=== PATIENT | female | born 1985 | race Caucasian/White ===

== ENCOUNTER → 2020-06-29 14:08 | Outpatient (BNVA) | payer MEDICAID, SELFPAY | PROVIDERS: PCP Internal Medicine; Referring Provider Internal Medicine; Visit Provider Physician Assistant | DX: R12 Heartburn (principal); Z79.899 Other long term (current) drug therapy | CPT/HCPCS: 99203 ==

== ENCOUNTER → 2020-08-24 08:53 | Outpatient (BNVA) | payer MEDICAID, SELFPAY | PROVIDERS: PCP Internal Medicine; Visit Provider Physician Assistant | DX: Z76.89 Persons encountering health services in other specified circumstances (principal) ==

== ENCOUNTER 2021-03-29 13:11 | Outpatient (REF) | payer MEDICAID, SELFPAY ==
[2021-03-29 14:35] LABS: MANUAL DIFF FLAG NO
[2021-03-29 14:46] LABS: Basophils Absolute Auto 0.1 X10*3/uL (0.0-0.2); Basophils Percent Auto 0.5 % (0-2); Eosinophils Absolute Auto 0.6 X10*3/uL (0.0-0.4); Eosinophils Percent Auto 4.3 % (0-4); Hemoglobin 10.1 g/dl (12.0-16.0); Imm Gran Abs Auto 0.05 X10*3/uL (0.00-0.03); Imm Gran Pct Auto 0.4 % (0.0-0.4); Lymphocytes Absolute Auto 2.7 X10*3/uL (1.2-4.9); Lymphocytes Percent Auto 20.5 % (20-40); Mean Corpuscular HGB Conc 29.7 g/dl (31.0-35.0); Monocytes Absolute Auto 0.6 X10*3/uL (0.1-1.2); Monocytes Percent Auto 4.5 % (2-11); NRBC Pct Auto 0.2 /100WBC (0.0-0.2); Neutrophils Absolute Auto 9.2 X10*3/uL (2.0-8.3); Neutrophils Percent Auto 69.8 % (45-73); Platelet Count 321 X10*3/uL (160-400); Red Blood Count 5.61 X10*6/uL (4.20-5.50); Red Cell Distribution Width 19.3 % (11.0-16.0); White Blood Count 13.2 X10*3/uL (4.8-10.8)
[2021-03-29 14:47] LABS: Mean Corpuscular Volume 60.6 fL (80-98)
[2021-03-29 14:57] LABS: Alanine Aminotransferase 13 U/L (0-31); Albumin Level 4.7 g/dL (3.5-5.0); Alkaline Phosphatase 94 U/L (39-117); Anion Gap 16 (12-20); Aspartate Amino Transferase 17 U/L (5-31); Bilirubin Total 1.2 mg/dL (0.0-1.0); Blood Urea Nitrogen 9 mg/dL (9-16); Calcium 9.7 mg/dL (8.4-10.2); Carbon Dioxide 24 mmol/L (22-29); Chloride 102 mmol/L (96-108); Estimated Glomerular Filt Rate > 60; Glucose Random 87 mg/dL (60-115); Iron 57 mcg/dL (30-160); Percent Iron Saturation 18 % (15-50); Potassium 4.6 mmol/L (3.3-5.1); Sodium 137 mmol/L (135-145); Total Iron Binding Capacity 310 mcg/dL (228-428); Total Protein 7.8 g/dL (6.5-8.0); Unsaturated Iron Binding 253 ug/dL
[2021-03-29 15:19] LABS: Ferritin 266 ng/mL (10-122); Thyroid Stimulating Hormone 0.89 uIU/mL (0.32-4.0)
[2021-03-29 15:29] LABS: Vitamin B12 652 pg/mL (200-900)
[2021-04-02 12:46] LABS: Transglutaminase IgA 1 U/mL
[2021-04-03 12:17] LABS: Endomysial IgA Antibody Negative (Negative)
== END 2021-03-29 13:12 | disposition home or self-care (01) ==
LOC: HO.LAB 13:11
PROVIDERS: PCP Internal Medicine; Referring Provider Internal Medicine; Visit Provider Physician Assistant
DX: R10.11 Right upper quadrant pain (principal); D64.9 Anemia, unspecified; R74.01 Elevation of levels of liver transaminase levels; R19.7 Diarrhea, unspecified; K59.09 Other constipation; R12 Heartburn
CPT/HCPCS: 36415; 80053; 82607; 82728; 82746; 83516; 83540; 84443; 85025; 86255; 86256; 99202

== ENCOUNTER → 2021-04-10 10:07 | Outpatient (BNVA) | payer MEDICAID, SELFPAY | PROVIDERS: PCP Internal Medicine; Visit Provider Physician Assistant ==

== ENCOUNTER 2021-04-24 15:03 | Outpatient (REF) | payer MEDICAID, SELFPAY ==
--- NOTE | ~2021-04-24 | US_ITS ---
EXAMINATION: PELVIC ULTRASOUND CLINICAL INFORMATION: Endometriosis COMPARISON: Previous pelvic MRI October [address] of the abdomen and pelvis December 2018 TECHNIQUE: Transabdominal and transvaginal pelvic ultrasound. Transvaginal exam was performed for better visualization of the uterus and ovaries. FINDINGS: The uterus is anteverted and measures 10.8 x 4.1 x 5.3 cm in dimension. No focal uterine lesion is seen. Endometrial thickness is normal measuring 1.4 cm. The right ovary measures 4.2 x 1.7 x 3.4 cm. There is a 1.6 x 1.5 x 1.3 cm slightly complex right ovarian cyst. The left ovary is normal-appearing and measures 3.7 x 1.7 x 2 cm. There is a small amount of fluid in the pelvis adjacent to the right ovary. US/US pelvic and transvaginal IMPRESSION: Small 1.6 x 1.5 x 1.3 cm slightly complex right ovarian cyst and small amount of fluid in the right pelvis.
== END 2021-04-24 15:04 | disposition home or self-care (01) ==
LOC: HO.HMGCX 15:03
PROVIDERS: Visit Provider Advanced Practice Midwife
DX: N80.9 Endometriosis, unspecified (principal); N94.6 Dysmenorrhea, unspecified
CPT/HCPCS: 76830; 76856

== ENCOUNTER 2021-07-19 07:58 | Outpatient (REF) | payer MEDICAID, SELFPAY ==
[2021-07-19 10:10] LABS: Hematocrit 33.9 % (37-47); Hemoglobin 10.2 g/dl (12.0-16.0); Mean Corpuscular HGB Conc 30.1 g/dl (31.0-35.0); Mean Corpuscular Hemoglobin 18.4 pg (27.0-33.0); NRBC Pct Auto 0.2 /100WBC (0.0-0.2); Platelet Count 306 X10*3/uL (160-400); Red Blood Count 5.55 X10*6/uL (4.20-5.50); Red Cell Distribution Width 18.6 % (11.0-16.0); White Blood Count 12.3 X10*3/uL (4.8-10.8)
[2021-07-19 10:13] LABS: Mean Corpuscular Volume 61.1 fL (80-98)
[2021-07-19 10:26] LABS: HCG Quantitative < 2 mIU/mL; TSH reflex Free T4 1.66 uIU/mL (0.32-4.0)
[2021-07-19 14:42] LABS: CT PCR NOT DETECTED (Not Detect.); NG PCR NOT DETECTED (Not Detect.)
[2021-07-20 22:21] LABS: CA-125 12 U/mL (<35)
[2021-07-24 05:46] LABS: HPV mRNA E6/E7 rflx Not Detected (Not Detected)
== END 2021-07-19 07:59 | disposition home or self-care (01) ==
LOC: HO.LAB 07:58
PROVIDERS: PCP Internal Medicine; Visit Provider Obstetrics & Gynecology
DX: Z12.4 Encounter for screening for malignant neoplasm of cervix (principal); Z11.51 Encounter for screening for human papillomavirus (HPV); Z11.3 Encounter for screening for infections with a predominantly sexual mode of transmission; R10.2 Pelvic and perineal pain; N92.0 Excessive and frequent menstruation with regular cycle; N83.299 Other ovarian cyst, unspecified side; R31.29 Other microscopic hematuria
CPT/HCPCS: 36415; 84443; 84702; 85027; 86304; 87086; 87491; 87591; 87624; 88142; 99212

== ENCOUNTER 2021-07-24 10:23 | Outpatient (REF) | payer MEDICAID, SELFPAY ==
--- NOTE | ~2021-07-24 | US_ITS ---
EXAMINATION: US PELVIS CLINICAL INFORMATION: Abnormal uterine bleeding. COMPARISON: 04/24/2021 TECHNIQUE: Ultrasound of the pelvis is performed using both transabdominal and transvaginal transducers along with Doppler. Transvaginal imaging is performed due to inadequate visualization transabdominally. FINDINGS: The uterus is measuring 13.5 x 4 x 5.8 cm. The endometrial thickness is measured at 1.1 cm. The uterus is anteverted and, therefore, better visualization of the canal on the transabdominal imaging. Note is made of some fluid in the lower uterine segment outlining the canal. The ovaries are also only defined transabdominally. The right ovary is measuring 3.2 x 1.9 x 2.5 cm. Volume 8 mL. The left ovary is measuring 2.9 x 2.1 x 2.7. Volume 9 mL. Ovarian appearance and vascularity within normal limits. No free fluid or obvious adnexal mass. US/US pelvic and transvaginal IMPRESSION: Endometrial thickness is 1.1 cm. This may be normal for mid to late phase of the cycle. Otherwise, hyperplasia or polyp formation cannot be excluded. There is some mild fluid in the lower uterine segment canal.
== END 2021-07-24 10:24 | disposition home or self-care (01) ==
LOC: HO.HMGCX 10:23
PROVIDERS: PCP Internal Medicine; Visit Provider Obstetrics & Gynecology
DX: N93.9 Abnormal uterine and vaginal bleeding, unspecified (principal)
CPT/HCPCS: 76830; 76856

== ENCOUNTER 2021-08-22 11:53 | Outpatient (REF) | payer MEDICAID, SELFPAY | END 2021-08-22 11:54 | disposition home or self-care (01) | LOC: HO.LAB 11:53 | PROVIDERS: PCP Internal Medicine; Visit Provider Obstetrics & Gynecology | DX: N92.0 Excessive and frequent menstruation with regular cycle (principal); R31.29 Other microscopic hematuria | CPT/HCPCS: 58100; 88305; 99212 ==

== ENCOUNTER → 2021-08-29 08:07 | Outpatient (BNVA) | payer MEDICAID, SELFPAY | PROVIDERS: PCP Internal Medicine; Referring Provider Emergency Medicine; Visit Provider Surgery | DX: K64.5 Perianal venous thrombosis (principal) | CPT/HCPCS: 99202 ==

== ENCOUNTER → 2021-09-20 09:12 | Outpatient (BNVA) | payer MEDICAID, SELFPAY | PROVIDERS: PCP Internal Medicine; Visit Provider Obstetrics & Gynecology | DX: N83.299 Other ovarian cyst, unspecified side (principal); N92.0 Excessive and frequent menstruation with regular cycle | CPT/HCPCS: 99212 ==

== ENCOUNTER → 2021-11-21 08:44 | Outpatient (BNVA) | payer MEDICAID, SELFPAY | PROVIDERS: PCP Internal Medicine; Referring Provider Internal Medicine; Visit Provider Physician Assistant | DX: N92.0 Excessive and frequent menstruation with regular cycle (principal); R12 Heartburn; D56.3 Thalassemia minor | CPT/HCPCS: 99212 ==

== ENCOUNTER → 2021-12-19 09:47 | Outpatient (BNVA) | payer MEDICAID, SELFPAY | PROVIDERS: Visit Provider Obstetrics & Gynecology | DX: N93.9 Abnormal uterine and vaginal bleeding, unspecified (principal) | CPT/HCPCS: 81025; 99212 ==

== ENCOUNTER 2022-02-07 17:05 | Emergency (ER) | payer MEDICAID, SELFPAY ==
--- NOTE | ~2022-02-07 | CT_ITS ---
EXAMINATION: CT ABDOMEN AND PELVIS WITHOUT CONTRAST CLINICAL INFORMATION: Left lower quadrant pain. History of constipation COMPARISON: 01/19/2019 CT scan TECHNIQUE: Multidetector volumetric imaging was performed from the superior aspect of the liver through the pubic symphysis. Sagittal and coronal reformatted images were obtained on the technologist's workstation. This CT examination was performed using dose optimization techniques as appropriate, variously including the following: *Automated exposure control *Adjustment of mA and/or kV according to patient size (this includes techniques or standardized protocols for targeted exams where dose is matched to indication/reason for exam; i.e. extremities or head) *Use of iterative reconstruction technique DLP: 743 mGy-cm FINDINGS: LUNG BASES: The visualized lung bases are unremarkable. LIVER, GALLBLADDER, AND BILIARY TREE: The liver is normal in size, shape, and attenuation. No focal hepatic lesion or biliary ductal dilatation is present. The gallbladder surgically absent. PANCREAS: Unremarkable. SPLEEN: Prominent measuring 13.2 cm in length, similar to the prior study. ADRENAL GLANDS: Unremarkable. KIDNEYS AND URETERS: The kidneys are normal in size, shape, and attenuation. No hydronephrosis or hydroureter. Nonobstructing 5 mm calcification in the lower pole right collecting system.. No perinephric stranding. BLADDER: Unremarkable. GASTROINTESTINAL TRACT: The small and large bowel are unremarkable. The appendix is unremarkable. ABDOMINAL WALL: No significant hernia is appreciated. LYMPH NODES: Normal. VASCULAR: Unremarkable. PELVIC VISCERA: Unremarkable. OSSEOUS STRUCTURES: Unremarkable. CT/CT abdomen pelvis wo con IMPRESSION: No acute intra-abdominal process seen. Nonobstructing right renal calculi incidentally noted. Fleischner guidelines were followed.
[2022-02-07 18:10] VITALS: BP 141/91; PULSE 89; RESP 16; TEMP 36.2; O2SAT 97; BMI 37.8
[2022-02-07 18:26] LABS: Appearance Urine CLEAR; Basophils Absolute Auto 0.1 X10*3/uL (0.0-0.2); Basophils Percent Auto 0.3 % (0-2); Color Urine YELLOW; Glucose Urine UA NEG (NEG); Leukocyte Esterase Urine NEG (NEG); NRBC Pct Auto 0.1 /100WBC (0.0-0.2); Neutrophils Absolute Auto 10.3 x10*3/uL (2.0-8.3); Nitrite Urine NEG (NEG); Red Blood Count 5.83 X10*6/uL (4.20-5.50); SCAN SMEAR FLAG 1; Specific Gravity - Urine <= 1.005 (1.005-1.025); Urine Blood NEG (NEG); Urine Ketones NEG (NEG); Urine Protein NEG (NEG-TRACE)
[2022-02-07 18:28] LABS: Eosinophils Absolute Auto 0.4 X10*3/uL (0.0-0.4); Hematocrit 34.7 % (37.0-47.0); Hemoglobin 10.5 g/dl (12.0-16.0); Imm Gran Abs Auto 0.06 X10*3/uL (0.00-0.03); Imm Gran Pct Auto 0.4 % (0.0-0.4); Lymphocytes Absolute Auto 3.3 X10*3/uL (1.2-4.9); Lymphocytes Percent Auto 22.3 % (20-40); MANUAL DIFF FLAG SCAN; Mean Corpuscular HGB Conc 30.3 g/dl (31.0-35.0); Monocytes Absolute Auto 0.7 X10*3/uL (0.1-1.2); Monocytes Percent Auto 4.6 % (2-11); Neutrophils Percent Auto 69.4 % (45-73); Platelet Count 342 X10*3/uL (160-400); White Blood Count 14.8 X10*3/uL (4.8-10.8)
[2022-02-07 18:29] LABS: UPreg QC Valid YES; Urine Pregnancy NEGATIVE (NEGATIVE)
[2022-02-07 18:36] LABS: Anion Gap 11 (12-20); Blood Urea Nitrogen 8 mg/dL (9-16); Calcium 9.3 mg/dL (8.4-10.2); Carbon Dioxide 25 mmol/L (22-29); Chloride 104 mmol/L (96-108); Creatinine Clr Calc Pharmacy 109.6; Estimated Glomerular Filt Rate > 60; Glucose Random 94 mg/dL (60-115); Sodium 136 mmol/L (135-145)
[2022-02-07 18:54] LABS: Mean Corpuscular Volume 59.5 fL (80.0-98.0)
[2022-02-07 18:55] LABS: PLT ABN DIST 1
[2022-02-07 18:57] LABS: SLIDE REVIEW VERIFIED
[2022-02-07 20:43] VITALS: BP 155/84; PULSE 81; RESP 18; TEMP 36.3; O2SAT 99
--- NOTE | 2022-02-07 21:04 | ED_ITS ---
HPI - Abdominal Pain General Chief Complaint: Abdominal Pain Stated Complaint: lower abd pain headache nausea Time Seen by Provider: 02/07/22 20:00 Source: patient Mode of arrival: ambulatory Limitations: no limitations History of Present Illness HPI narrative: Patient comes emergency room complaining of left lower quadrant pain for 2 days. Patient states that she has not moved her bowels in over 2 weeks. Patient takes some oral medication to move her bowels, she does not know the name. Patient denies blood in the stool, today she started complaining of nausea and worsening pain in the left lower quadrant Related Data Home Medications Medication Instructions Recorded Confirmed ferrous sulfate 220 mg (44 mg 110 mg PO DAILY 06/29/20 11/21/21 iron)/5 mL oral solution folic acid 800 mcg tablet 0.8 mg PO DAILY 06/29/20 11/21/21 sertraline 100 mg tablet 100 mg PO DAILY 06/29/20 11/21/21 hydrochlorothiazide 50 mg tablet 50 mg PO BID 04/10/21 11/21/21 Previous Rx's Medication Instructions Recorded omeprazole 20 mg capsule,delayed 20 mg PO DAILY #30 cap 08/24/20 release ferrous sulfate 325 mg (65 mg 325 mg PO DAILY #90 tab 07/19/21 iron) tablet,delayed release L norgest/E estradiol-E estrad 1 tab PO DAILY 84 Days #84 ea 12/19/21 0.15 mg-30 mcg (84)/10 mcg(7) tabs,3mos (Seasonique) polyethylene glycol 3350 17 gram 17 g PO BID #30 ea 02/07/22 oral powder packet (Miralax) Allergies Allergy/AdvReac Type Severity Reaction Status Date / Time latex Allergy Eye Verified 12/19/21 09:52 Swelling Review of Systems Review of Systems Constitutional : No Weight loss, No Fever, No Chills, No Night Sweats, No Fatigue, No Malaise ENT/Mouth : No Hearing loss, No Ear Pain, No Nasal Congestion, No Sinus Pain, No Hoarseness, No sore throat, No Rhinorrhea, No Swallowing Difficulty Eyes: No Eye Pain, No Swelling, No Redness, No Foreign Body, No Discharge, No Vision Changes Cardiovascular : No Chest Pain, No SOB, No Dyspnea on Exertion, No Orthopnea, No Edema, No Palpitations Respiratory : No Cough, No Sputum, No Wheezing, No Smoke Exposure, No Dyspnea Gastrointestinal : Complaining of nausea, no diarrhea, complaining of constipation and left lower quadrant pain Genitourinary : no irregular bleeding, No Dysuria, No Urinary Frequency, No Hematuria, No Urinary Incontinence, No Urgency, No Flank Pain, No Urinary Flow Changes, No Hesitancy Musculoskeletal : No joint pain, No Myalgias, No Joint Swelling Skin : No Skin Lesions, No rash Neuro : No Weakness, No Numbness, No Paresthesias, No Loss of Consciousness, No Dizziness, No Headache Psych : No Anxiety/Panic, No Depression, No SI/HI/AH/VH, No Social Issues, Heme/Lymph: No Bruising, No Bleeding,No Lymphadenopathy Endocrine : No Polyuria, No Polydipsia, No Temperature Intolerance [facility] Past Medical History Medical History Anemia Endometriosis Heartburn Thalassemia minor Thrombosed external hemorrhoid Surgical History No significant past surgical history Family History Family History Father Hypertension Heart attack Mother Cancer H/O thalassemia minor Social History Social History Household Members: Spouse and Children Housing: Apartment Alcohol intake: never Patient Tobacco Use Status: Never used Tobacco Advance Directives: No Current occupation: diesel bus mechanic Sexual orientation: Straight/Heterosexual Gender identity: Female Physical Exam ED Vital Signs: Vital Signs - 24 hr 02/07/22 18:10 02/07/22 20:43 02/07/22 22:11 Temperature 97.1 F 97.4 F 97.0 F Pulse Rate 89 81 79 Respiratory Rate 16 18 18 Blood Pressure 141/91 H 155/84 H 136/77 Pulse Oximetry 97 99 99 BMI result Body Mass Index 37.8 Const Other: Appearance: Alert. Oriented X3. No acute distress. Eyes: Pupils equal, round and reactive to light. ENT: Pharynx normal. Neck: Normal inspection. Neck supple. No lymph nodes noted. No crepitus CVS: Normal heart rate and rhythm. Pulses normal. Normal S1 and S2 Respiratory: No respiratory distress. Breath sounds normal. No Wheezing. No rales Abdomen: Soft pain to palpation over the left lower quadrant Skin: Skin warm and dry. Normal skin color. Normal skin turgor. Extremities: No lower extremity edema. No Lacerations. No Rash Neuro: Oriented X 3. No motor deficit. No sensory deficit. Moving all extremities. No slurred speech. CN 2 through 12 grossly intact Psych: calm, cooperative, normal affect Course Course Course Narrative: Patient's white blood cell count is 14.8, patient has history of chronic leukocytosis. Patient has no fever chills, normal blood pressure. CT scan pending. Patient was given 1 dose of IM Toradol and sublingual Zofran Patient's CT scan is unremarkable. Patient's abdominal pain likely secondary to constipation. The likely cause of constipation is p.o. iron intake MDM - Abdominal Pain Lab Data Result diagrams: 02/07/22 18:18 02/07/22 18:18 Labs: Lab Results 02/07/22 02/07/22 02/07/22 Range/Units 18:18 18:18 18:18 WBC 14.8 H (4.8-10.8) X10*3/uL RBC 5.83 H (4.20-5.50) X10*6/uL Hgb 10.5 L (12.0-16.0) g/dl Hct 34.7 L (37.0-47.0) % MCV 59.5 L (80.0-98.0) fL MCH 18.0 L (27.0-33.0) pg MCHC 30.3 L (31.0-35.0) g/dl RDW 19.0 H (11.0-16.0) % Plt Count 342 (160-400) X10*3/uL MPV Not Reportable Immature Gran % (Auto) 0.4 (0.0-0.4) % Neut % (Auto) 69.4 (45-73) % Lymph % (Auto) 22.3 (20-40) % Mcclain % (Auto) 4.6 (2-11) % Eos % (Auto) 3.0 (0-4) % Baso % (Auto) 0.3 (0-2) % Lymph # (Auto) 3.3 (1.2-4.9) X10*3/uL Mcclain # (Auto) 0.7 (0.1-1.2) X10*3/uL Eos # (Auto) 0.4 (0.0-0.4) X10*3/uL Baso # (Auto) 0.1 (0.0-0.2) X10*3/uL Abs Immat Gran (auto) 0.06 H (0.00-0.03) X10*3/uL Absolute Neuts (auto) 10.3 H (2.0-8.3) x10*3/uL Absolute Nucleated RBC 0.020 H (0.0-0.012) X10*3/uL Nucleated RBC % (auto) 0.1 (0.0-0.2) /100WBC Smear Tech's Comments VERIFIED Sodium 136 (135-145) mmol/L Potassium 4.0 (3.3-5.1) mmol/L Chloride 104 (96-108) mmol/L Carbon Dioxide 25 (22-29) mmol/L Anion Gap 11 L (12-20) BUN 8 L (9-16) mg/dL Creatinine 0.75 (0.5-1.4) mg/dL Estim Creat Clear Calc 109.6 Estimated GFR > 60 Random Glucose 94 (60-115) mg/dL Calcium 9.3 (8.4-10.2) mg/dL Total Bilirubin 0.9 (0.0-1.0) mg/dL Direct Bilirubin 0.3 (0.0-0.5) mg/dL AST 19 (5-31) U/L ALT 29 (0-31) U/L Alkaline Phosphatase 81 (39-117) U/L Total Protein 7.6 (6.5-8.0) g/dL Albumin 4.5 (3.5-5.0) g/dL Urine Color YELLOW Urine Appearance CLEAR Urine pH 6.0 (5.0-8.0) Ur Specific [place] <= 1.005 (1.005-1.025) Urine Protein NEG (NEG-TRACE) MG/DL Urine Glucose (UA) NEG (NEG) MG/DL Urine Ketones NEG (NEG) MG/DL Urine Blood NEG (NEG) Urine Nitrite NEG (NEG) Ur Leukocyte Esterase NEG (NEG) Urine Test (NEGATIVE) 02/07/22 Range/Units 18:18 WBC (4.8-10.8) X10*3/uL RBC (4.20-5.50) X10*6/uL Hgb (12.0-16.0) g/dl Hct (37.0-47.0) % MCV (80.0-98.0) fL MCH (27.0-33.0) pg MCHC (31.0-35.0) g/dl RDW (11.0-16.0) % Plt Count (160-400) X10*3/uL MPV Immature Gran % (Auto) (0.0-0.4) % Neut % (Auto) (45-73) % Lymph % (Auto) (20-40) % Mcclain % (Auto) (2-11) % Eos % (Auto) (0-4) % Baso % (Auto) (0-2) % Lymph # (Auto) (1.2-4.9) X10*3/uL [place]cl[place] # (Auto) (0.1-1.2) X10*3/uL Eos # (Auto) (0.0-0.4) X10*3/uL Baso # (Auto) (0.0-0.2) X10*3/uL Abs Immat Gran (auto) (0.00-0.03) X10*3/uL Absolute Neuts (auto) (2.0-8.3) x10*3/uL Absolute Nucleated RBC (0.0-0.012) X10*3/uL Nucleated RBC % (auto) (0.0-0.2) /100WBC Smear Tech's Comments Sodium (135-145) mmol/L Potassium (3.3-5.1) mmol/L Chloride (96-108) mmol/L Carbon Dioxide (22-29) mmol/L Anion Gap (12-20) BUN (9-16) mg/dL Creatinine (0.5-1.4) mg/dL Estim Creat Clear Calc Estimated GFR Random Glucose (60-115) mg/dL Calcium (8.4-10.2) mg/dL Total Bilirubin (0.0-1.0) mg/dL Direct Bilirubin (0.0-0.5) mg/dL AST (5-31) U/L ALT (0-31) U/L Alkaline Phosphatase (39-117) U/L Total Protein (6.5-8.0) g/dL Albumin (3.5-5.0) g/dL Urine Color Urine Appearance Urine pH (5.0-8.0) Ur Specific [place] (1.005-1.025) Urine Protein (NEG-TRACE) MG/DL Urine Glucose (UA) (NEG) MG/DL Urine Ketones (NEG) MG/DL Urine Blood (NEG) Urine Nitrite (NEG) Ur Leukocyte Esterase (NEG) Urine Test NEGATIVE (NEGATIVE) Imaging Data CT scan - abdomen: Radiologist's impression: FINDINGS: LUNG BASES: The visualized lung bases are unremarkable.? LIVER, GALLBLADDER, AND BILIARY TREE: The liver is normal in size, shape, and attenuation. No focal hepatic lesion or biliary ductal dilatation is present. The gallbladder surgically absent.? PANCREAS: Unremarkable.? SPLEEN: Prominent measuring 13.2 cm in length, similar to the prior study.? ADRENAL GLANDS: Unremarkable.? KIDNEYS AND URETERS: The kidneys are normal in size, shape, and attenuation. No hydronephrosis or hydroureter. Nonobstructing 5 mm calcification in the lower pole right collecting system.. No perinephric stranding. ? BLADDER: Unremarkable.? GASTROINTESTINAL TRACT: The small and large bowel are unremarkable. The appendix is unremarkable.? ABDOMINAL WALL: No significant hernia is appreciated.? LYMPH NODES: Normal. VASCULAR: Unremarkable. PELVIC VISCERA: Unremarkable.? OSSEOUS STRUCTURES: Unremarkable.? CT/CT abdomen pelvis wo con IMPRESSION: No acute intra-abdominal process seen. Nonobstructing right renal calculi incidentally noted.? ? Fleischner guidelines were followed. Discharge Plan Discharge Clinical Impression: Abdominal pain, Constipation Patient Disposition: Home, Self-Care Instructions: Constipation (ED) Additional Instructions: Please follow-up with your primary care physician tomorrow. If you have any worsening or new symptoms, please return to the emergency room or call 911 Prescriptions: New polyethylene glycol 3350 [Miralax] 17 gram powder in packet 17 g PO BID Qty: 30 0RF No Action ferrous sulfate 325 mg (65 mg iron) tablet,delayed release (DR/EC) 325 mg PO DAILY Qty: 90 1RF omeprazole 20 mg capsule,delayed release(DR/EC) 20 mg PO DAILY Qty: 30 5RF hydrochlorothiazide 50 mg tablet 50 mg PO BID 0RF sertraline 100 mg tablet 100 mg PO DAILY 0RF folic acid 800 mcg tablet 0.8 mg PO DAILY 0RF ferrous sulfate 220 mg (44 mg iron)/5 mL solution 110 mg PO DAILY 0RF L norgest/e.estradiol-e.estrad [Seasonique] 0.15 mg-30 mcg (84)/10 mcg (7) tablets,dose pack,3 month 1 tab PO DAILY 84 Days Qty: 84 1RF
[2022-02-07] MEDS: Ondansetron ODT 4 MG TAB.RAPDIS TRANSLINGU (21:11)
[2022-02-07] MEDS: Ketorolac Tromethamine 60 MG/2 ML VIAL IM (21:12)
[2022-02-07 21:14] LABS: Alanine Aminotransferase 29 U/L (0-31); Albumin Level 4.5 g/dL (3.5-5.0); Alkaline Phosphatase 81 U/L (39-117); Aspartate Amino Transferase 19 U/L (5-31); Bilirubin Direct 0.3 mg/dL (0.0-0.5); Bilirubin Total 0.9 mg/dL (0.0-1.0); Total Protein 7.6 g/dL (6.5-8.0)
[2022-02-07 22:11] VITALS: BP 136/77; PULSE 79; RESP 18; TEMP 36.1; O2SAT 99
== END 2022-02-07 22:35 | disposition home or self-care (01) ==
PROVIDERS: Emergency Provider Emergency Medicine; PCP Internal Medicine
DX: K59.00 Constipation, unspecified (principal); R10.32 Left lower quadrant pain; Z79.899 Other long term (current) drug therapy
CPT/HCPCS: 36415; 74176; 80048; 80076; 81003; 81025; 85025; 96372; 99283; 99284; J1885

== ENCOUNTER 2022-02-21 15:29 | Outpatient (REF) | payer MEDICAID, SELFPAY ==
[2022-02-22 02:31] LABS: CT PCR NOT DETECTED (Not Detect.); NG PCR NOT DETECTED (Not Detect.)
== END 2022-02-21 15:30 | disposition home or self-care (01) ==
LOC: HO.LAB 15:29
PROVIDERS: PCP Internal Medicine; Visit Provider Obstetrics & Gynecology
DX: N93.9 Abnormal uterine and vaginal bleeding, unspecified (principal); R31.29 Other microscopic hematuria; R10.2 Pelvic and perineal pain; R10.32 Left lower quadrant pain
CPT/HCPCS: 87086; 87491; 87591; 99212

== ENCOUNTER 2022-03-14 10:14 | Outpatient (REF) | payer MEDICAID, SELFPAY ==
--- NOTE | ~2022-03-14 | US_ITS ---
EXAMINATION: US PELVIS CLINICAL INFORMATION: AUB. Pelvic pain. History of endometriosis. COMPARISON: Ultrasound of pelvis 07/24/2021. Negative CT of the abdomen and pelvis 02/07/2022. TECHNIQUE: Ultrasound of the pelvis is performed using both transabdominal and transvaginal transducers along with Doppler. Transvaginal imaging is performed due to inadequate visualization transabdominally. FINDINGS: UTERUS: The uterus is anteverted, retroflexed and measures 12.1 cm in length, 4.1 cm in AP and 4.9 cm in transverse dimension. The double wall endometrial thickness is 0.46 cm. The uterus is smooth in contour and has normal myometrial echogenicity. No visible fibroid. ADNEXA: Both ovaries are visualized. There is normal color flow to the adnexa. There is no ovarian torsion. There is no pelvic ascites or fluid collection. Right ovary measures 3.1 x 1.5 x 2.5 cm and volume 6.0 mL. The ovary appears unremarkable. Previously it measured 3.2 x 1.9 x 2.5 cm and volume 8.0 mL. Left ovary measures 2.6 x 1.3 x 1.6 cm and volume 2.8 mL. The ovary appears unremarkable. Previously it measured 2.9 x 2.1 x 2.7 cm and volume 8.7 mL. There is no free fluid in the cul-de-sac. US/US pelvic and transvaginal IMPRESSION: Anteverted uterus appears unremarkable. The ovaries are unremarkable. There is no free fluid in the cul-de-sac.
== END 2022-03-14 10:15 | disposition home or self-care (01) ==
LOC: HO.HMGCX 10:14
PROVIDERS: Visit Provider Obstetrics & Gynecology
DX: R10.2 Pelvic and perineal pain (principal)
CPT/HCPCS: 76830; 76856

== ENCOUNTER → 2022-04-03 10:30 | Outpatient (BNVA) | payer MEDICAID, SELFPAY | PROVIDERS: PCP Internal Medicine; Visit Provider Obstetrics & Gynecology | DX: R10.2 Pelvic and perineal pain (principal) | CPT/HCPCS: 99212 ==

== ENCOUNTER → 2022-04-11 08:53 | Outpatient (BNVA) | payer MEDICAID, SELFPAY | PROVIDERS: PCP Internal Medicine | DX: R31.29 Other microscopic hematuria (principal); N20.0 Calculus of kidney | CPT/HCPCS: 99202 ==

== ENCOUNTER 2022-06-03 11:16 | Outpatient (REF) | payer MEDICAID, SELFPAY ==
--- NOTE | ~2022-06-03 | US_ITS ---
EXAMINATION: US RETROPERITONEAL LIMITED (RENAL ONLY) CLINICAL INFORMATION: Calculus of kidney. COMPARISON: CT abdomen and pelvis without contrast 02/07/2022. TECHNIQUE: Real-time imaging of the kidneys. FINDINGS: RIGHT KIDNEY: 11.4 x 4.6 x 6.0 cm (SAG x AP x TRV). The kidney is normal in size, contour, and echogenicity. Renal cortical thickness is normal. No focal parenchymal lesions or hydronephrosis. Two nonobstructive echogenic calculi. A midpole stone measures 0.32 x 0.12 x 0.23 cm and a lower pole stone measures 0.31 x 0.25 and 0.26 cm. LEFT KIDNEY: 11.7 x 4.4 x 5.3 cm (SAG x AP x TRV). The kidney is normal in size, contour, and echogenicity. Renal cortical thickness is normal. No calculi or focal parenchymal lesions. No hydronephrosis. US/US renal BI IMPRESSION: Two nonobstructive echogenic renal calculi right kidney. No caliectasis or hydronephrosis seen.
== END 2022-06-03 11:17 | disposition home or self-care (01) ==
LOC: HO.HMGCX 11:16
PROVIDERS: PCP Internal Medicine
DX: N20.0 Calculus of kidney (principal)
CPT/HCPCS: 76775

== ENCOUNTER → 2022-07-31 13:41 | Outpatient (BNVA) | payer MEDICAID, SELFPAY | PROVIDERS: PCP Internal Medicine; Visit Provider Urology | DX: Z13.9 Encounter for screening, unspecified (principal); N20.0 Calculus of kidney | CPT/HCPCS: 99212 ==

== ENCOUNTER 2022-08-12 11:09 | Emergency (ER) | payer MEDICAID, SELFPAY ==
[2022-08-12 11:13] VITALS: BP 120/86; PULSE 96; RESP 18; TEMP 36.6; O2SAT 98; BMI 39.4
--- NOTE | 2022-08-12 11:16 | ED_ITS ---
HPI - URI/Sore Throat General Chief Complaint: Upper Respiratory Symptoms Stated Complaint: cough congestion Time Seen by Provider: 08/12/22 11:31 Related Data Home Medications Medication Instructions Recorded Confirmed folic acid 800 mcg tablet 0.8 mg PO DAILY 06/29/20 07/31/22 sertraline 100 mg tablet 100 mg PO DAILY 06/29/20 07/31/22 hydroxyzine HCl 25 mg tablet 25 mg PO BID PRN 02/21/22 07/31/22 Previous Rx's Medication Instructions Recorded omeprazole 20 mg capsule,delayed 20 mg PO DAILY #30 caps 08/24/20 release ferrous sulfate 325 mg (65 mg 325 mg PO DAILY #90 tabs 07/19/21 iron) tablet,delayed release polyethylene glycol 3350 17 gram 17 g PO BID #30 ea 02/07/22 oral powder packet (Miralax) Allergies Allergy/AdvReac Type Severity Reaction Status Date / Time latex Allergy Eye Verified 08/12/22 10:39 Swelling PMFSH Past Medical History Medical History Anemia Endometriosis Heartburn Renal calculi Thalassemia minor Thrombosed external hemorrhoid Surgical History History of No significant past surgical history Family History Family History Father Hypertension Heart attack Mother Cancer H/O thalassemia minor Social History Social History Household Members: Spouse and Children Housing: Apartment Alcohol intake: never Patient Tobacco Use Status: Never used Tobacco Current occupation: business operations coordinator Sexual orientation: Straight/Heterosexual Gender identity: Female Physical Exam Vital Signs: Vital Signs: Last Vital Signs Temp 98 F 08/12/22 11:13 Pulse 96 08/12/22 11:13 Resp 18 08/12/22 11:13 BP 120/86 08/12/22 11:13 Pulse Ox 98 08/12/22 11:13 O2 Del Method 08/12/22 11:13 BMI result Body Mass Index 39.4 Discharge Plan Discharge Prescriptions: No Action ferrous sulfate 325 mg (65 mg iron) tablet,delayed release (DR/EC) 325 mg PO DAILY Qty: 90 1RF polyethylene glycol 3350 [Miralax] 17 gram powder in packet 17 g PO BID Qty: 30 0RF omeprazole 20 mg capsule,delayed release(DR/EC) 20 mg PO DAILY Qty: 30 5RF sertraline 100 mg tablet 100 mg PO DAILY folic acid 800 mcg tablet 0.8 mg PO DAILY hydroxyzine HCl 25 mg tablet 25 mg PO BID PRN
--- NOTE | 2022-08-12 11:32 | ED.GENADULT ---
HPI - General Adult General Chief complaint: Upper Respiratory Symptoms Stated complaint: cough congestion Time Seen by Provider: 08/12/22 11:31 Source: patient Mode of arrival: ambulatory Limitations: no limitations History of Present Illness HPI narrative: Patient is a 37 year old assigned female at with a history of asthma presenting to the emergency department today with a cough and feeling generally unwell. Patient states that for the last 2 days she has had a cough and felt generally unwell. Patient denies any dizziness, lightheadedness, abdominal pain, nausea, vomiting, fever, chills, blurry vision, double vision, loss of vision, chest pain, difficulty breathing, shortness of breath, back pain, night sweats, pain with urination, increased urinary frequency, increased urinary urgency, blood in her urine or stool, syncope or a near syncopal episode, recent trauma or falls, bowel incontinence, bladder incontinence, bowel retention, bladder retention, or any other complaints at this time. Onset (ago): day(s) (2) Severity: mild Severity scale (1-10): 2 Relieving factors: none Exacerbating factors: none Associated symptoms: cough Treatments prior to arrival: none Related Data Home Medications Medication Instructions Recorded Confirmed folic acid 800 mcg tablet 0.8 mg PO DAILY 06/29/20 07/31/22 sertraline 100 mg tablet 100 mg PO DAILY 06/29/20 07/31/22 hydroxyzine HCl 25 mg tablet 25 mg PO BID PRN 02/21/22 07/31/22 Previous Rx's Medication Instructions Recorded omeprazole 20 mg capsule,delayed 20 mg PO DAILY #30 caps 08/24/20 release ferrous sulfate 325 mg (65 mg 325 mg PO DAILY #90 tabs 07/19/21 iron) tablet,delayed release polyethylene glycol 3350 17 gram 17 g PO BID #30 ea 02/07/22 oral powder packet (Miralax) Allergies Allergy/AdvReac Type Severity Reaction Status Date / Time latex Allergy Eye Verified 08/12/22 10:39 Swelling Review of Systems Constitutional: Constitutional: Reports no additional constitutional complaints, Denies chills, Denies fever(s) and Denies night sweats Eyes: Eyes: Reports no additional eye complaints, Denies blurry vision, Denies change in vision, Denies diplopia, Denies eye discharge, Denies loss of vision and Denies eye pain ENT: Denies dizziness Cardiovascular: Cardiovascular: Reports no additional cardiovascular complaints, Denies chest pain, Denies lightheadedness, Denies Loss of Consciousness and Denies dyspnea Respiratory: Respiratory: Reports no additional respiratory complaints, Reports cough and Denies dyspnea Gastrointestinal: Gastrointestinal: Reports no additional gastrointestinal complaints, Denies abdominal pain, Denies melena, Denies hematochezia, Denies change in bowel habits and Denies change in stool character Genitourinary: Genitourinary: Denies hematuria, Denies urinary frequency, Denies dysuria, Denies urinary incontinence, Denies urinary hesitancy and Denies urinary urgency Musculoskeletal: Musculoskeletal: Reports no additional musculoskeletal complaints, Denies numbness and Denies tingling Neurologic: Denies dizziness, Denies loss of vision, Denies numbness and Denies tingling Psychiatric: Psychiatric: Reports no additional psychiatric complaints Endocrine: Endocrine: Reports no additional endocrine complaints Hematologic/Lymphatic: Hematologic/Lymphatic: Reports no additional hematologic/lymphatic complaints Allergic/Immunologic: Allergic/Immunologic: Reports no additional allergic/immunologic complaints PMFSH Past Medical History Attestation statement: The following information was validated with the patient. Source: old records reviewed Medical History Anemia Endometriosis Heartburn Renal calculi Thalassemia minor Thrombosed external hemorrhoid Surgical History History of No significant past surgical history Family History Family History Father Hypertension Heart attack Mother Cancer H/O thalassemia minor Social History Social History Household Members: Spouse and Children Housing: Apartment Alcohol intake: never Patient Tobacco Use Status: Never used Tobacco Advance Directives: No Advance Directives Information Provided: Yes Current occupation: business and marketing teacher Sexual orientation: Straight/Heterosexual Gender identity: Female Physical Exam ED Vital Signs: Vital Signs - 24 hr 08/12/22 11:13 Temperature 98 F Pulse Rate 96 Respiratory Rate 18 Blood Pressure 120/86 Pulse Oximetry 98 Oxygen Delivery Method Room Air BMI result Body Mass Index 39.4 Const General: cooperative, no acute distress, alert and awake Nutritional Appearance: well nourished Orientation/consciousness: patient oriented x3 Limitations: no limitations HENMT Head: Yes normal to inspection and Yes atraumatic Ears: hearing grossly normal bilaterally and external ears normal General nose exam: Normal external nose present, no nasal discharge noted and no epistaxis Face and sinus: Yes normal facial exam, No abrasion and No laceration Mouth: Normal oral and palatal mucosa present, no drooling and no muffled voice Eyes General: appearance normal, both eyes and all related structures Periorbital: periorbital findings normal Eyelids: Yes eyelids normal Conjunctivae: conjunctivae normal Pupils: Equal, round and reactive pupils present EOM: EOMs intact bilaterally Neck Neck: Yes normal visual inspection, Yes full ROM and Yes no lymphadenopathy Chest Chest palpation & inspection: normal inspection of the chest Resp Effort & Inspection: normal respiratory effort and able to speak in complete sentences Auscultation: clear to auscultation bilaterally Cardio Rate: regular rate Rhythm: regular rhythm GI Inspection: Yes normal to inspection Neuro General: patient oriented x3 and moves all extremities Cranial nerves: Yes Equal, round and reactive pupils present Cognition (Neuro): normal cognition Motor exam (neuro): 5/5 motor strength present throughout Sensory Exam: Normal double simultaneous stimulation for sensation Coordination: [id number] test normal Extrem General: Yes normal to inspection, Yes full ROM and Yes capillary refill normal Psych Appearance: grossly normal Mental Status: mental status grossly normal Affect: normal affect Attitude: cooperative Thought process: Normal thought process present Thought content: Normal thought content present Insight: Good insight present (Psych) Medical Decision Making MDM Narrative Medical decision making narrative: Patient is a 37 year old assigned female at with a history of asthma presenting to the emergency department today with a cough and feeling generally unwell. Patient's physical exam was unremarkable. Patient's rapid RSV, COVID-19, and influenza swab was negative. I explained my physical exam findings as well as all test results to the patient. I answered all questions asked by the patient. I stressed the importance of the patient taking her medication as prescribed. I stressed the importance of the patient following up with her primary care provider. I stressed the importance of the patient returning to the emergency department immediately if her symptoms were to worsen or if she were to develop any dizziness, shortness of breath, difficulty breathing, chest pain, blurry vision, loss of vision, nausea, vomiting, abdominal pain, fever, chills, back pain, or any other complaints. Patient verbalized agreement and understanding with this treatment plan and discharge. Medical Records Medical records reviewed: Yes I reviewed the patient's medical records. Lab Data Lab results reviewed: Yes I reviewed the patient's lab results. Labs: Lab Results 08/12/22 Range/Units 11:47 Influenza Type A (PCR) NEGATIVE (Negative) Influenza Type B (PCR) NEGATIVE (Negative) RSV RNA Qual (PCR) NEGATIVE (Negative) SARS-CoV-2 RNA (RT-PCR) NEGATIVE (Negative) Discharge Plan Discharge Clinical Impression: Upper respiratory illness Patient Disposition: Home, Self-Care Instructions: Upper Respiratory Infection (ED) Additional Instructions: Follow up with your primary care provider. Return to the emergency department immediately if your symptoms worsen or if you develop any dizziness, shortness of breath, difficulty breathing, chest pain, blurry vision, loss of vision, nausea, vomiting, abdominal pain, fever, chills, back pain, or any other complaints. Prescriptions: No Action ferrous sulfate 325 mg (65 mg iron) tablet,delayed release (DR/EC) 325 mg PO DAILY Qty: 90 1RF polyethylene glycol 3350 [Miralax] 17 gram powder in packet 17 g PO BID Qty: 30 0RF omeprazole 20 mg capsule,delayed release(DR/EC) 20 mg PO DAILY Qty: 30 5RF sertraline 100 mg tablet 100 mg PO DAILY folic acid 800 mcg tablet 0.8 mg PO DAILY hydroxyzine HCl 25 mg tablet 25 mg PO BID PRN Referrals: Mariely Trejo MD [Primary Care Provider] - Stand Alone Forms: Work/School Release Interventions: ED Discharge Assessment Last Done: 08/12/22 12:48 Discharge Date/Time: 08/12/22 12:48 Print Language: Jordanian
[2022-08-12 12:38] LABS: Influenza A PCR NEGATIVE (Negative); Influenza B PCR NEGATIVE (Negative); Resp Syncy Virus RNA Qual PCR NEGATIVE (Negative); SARS COV2 PCR INHOUSE NEGATIVE (Negative)
== END 2022-08-12 12:48 | disposition home or self-care (01) ==
PROVIDERS: Physician Assistant Medical; Emergency Provider Emergency Medicine; PCP Internal Medicine
DX: J06.9 Acute upper respiratory infection, unspecified (principal); Z20.822 Contact with and (suspected) exposure to COVID-19
CPT/HCPCS: 0241U; 99282; 99283

== ENCOUNTER 2022-09-18 10:35 | Outpatient (REF) | payer MEDICAID, SELFPAY ==
--- NOTE | ~2022-09-18 | US_ITS ---
EXAMINATION: US PELVIS CLINICAL INFORMATION: Hypertrophy of uterus. COMPARISON: 03/14/[address] scan of 02/07/2022. TECHNIQUE: Ultrasound of the pelvis is performed using both transabdominal and transvaginal transducers along with Doppler. Transvaginal imaging is performed due to inadequate visualization transabdominally. FINDINGS: UTERUS: The uterus is anteverted and measures 12.0 x 4.8 x 5.7 cm. The double wall endometrial thickness is 1.1 mm. The uterus is smooth in contour and has normal myometrial echogenicity. No visible fibroid. ADNEXA: Both ovaries are visualized. There is normal color flow to the adnexa. There is no ovarian torsion. There is a small amount of pelvic fluid. Right ovary measures 3.7 x 1.9 x 2.5 cm. Volume of 9.2 mL. Normal vascular flow without abnormal right adnexal mass. Left ovary measures 2.1 x 1.9 x 1.5 cm. Volume of 3.1 mL with no abnormal mass. US/US pelvic and transvaginal IMPRESSION: Prominent uterus without abnormal mass appreciated.
== END 2022-09-18 10:36 | disposition home or self-care (01) ==
LOC: HO.US 10:35
PROVIDERS: Visit Provider Obstetrics & Gynecology
DX: N85.2 Hypertrophy of uterus (principal)
CPT/HCPCS: 76830; 76856

== ENCOUNTER → 2022-10-02 10:38 | Outpatient (BNVA) | payer MEDICAID, SELFPAY | PROVIDERS: PCP Internal Medicine; Visit Provider Obstetrics & Gynecology | DX: N85.2 Hypertrophy of uterus (principal) | CPT/HCPCS: 99212 ==

== ENCOUNTER 2023-08-20 10:34 | Outpatient (AMB) | payer MEDICAID, SELFPAY ==
--- NOTE | 2023-08-20 10:41 | MHC.OFFVIS ---
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 No complaints. Last Pap/HPV was negative in 07/12 [facility] Medical History Renal calculi Thrombosed external hemorrhoid Endometriosis Thalassemia minor Anemia Heartburn Surgical History History of No significant past surgical history Family History Father Hypertension Heart attack Mother Cancer H/O thalassemia minor Social History Household Members: Spouse and Children Housing: Apartment Alcohol intake: never Patient Tobacco Use Status: Never used Tobacco Current occupation: financial business analyst Sexual orientation: Straight/Heterosexual Gender identity: Female Female Reproductive History Menstrual Age of Menarche: 8 Date of last menstrual period: 06/26/23 Total pregnancies: 1 Full term: 1 Number of Living Children: 1 Date of last pap smear: 07/20/21 Review of Systems Const All systems reviewed & are unremarkable except as noted in HPI and below Card Reports as per HPI Resp Reports as per HPI GI Reports as per HPI and Reports no additional complaints Reports as per HPI Physical Exam Vital Signs: Last Vital Signs BP 110/76 08/20/23 10:42 BMI result Body Mass Index 36.0 Const General: cooperative, healthy appearing and comfortable Chest Chest palpation & inspection: normal inspection of the chest and normal palpation of entire chest wall Breast/axilla inspection: normal inspection of the breasts and normal inspection of the axillae Breast/axilla palpation: normal palpation of the breasts, normal palpation of the axillae and no axillary lymphadenopathy Resp Effort & Inspection: normal respiratory effort Auscultation: clear to auscultation bilaterally Percussion: percussion normal Cardio Palpation: normal PMI Rate: regular rate Rhythm: regular rhythm Heart sounds: no murmurs and no rubs Peripheral pulses: Peripheral pulses 2+ throughout GI Inspection: Yes normal to inspection Palpation (GI): Soft to palpation, nontender, no guarding, not rigid and No hepatosplenomegaly present Percussion: Yes normal to percussion Auscultation: normal bowel sounds Rectal Exam - Female: deferred General: Yes bladder normal to palpation External Female Exam: No lesion Speculum Exam - Vagina: normal appearance of the vagina, normal palpation, normal vaginal discharge and not erythematous Speculum Exam - Cervix: normal appearance of the cervix and normal palpation Bimanual exam- vagina & uterus: normal bimanual exam, normal palpation, uterine size normal, bladder normal to palpation, consistency normal and normal palpation Bimanual Exam- Adnexa, other: normal adnexae, no masses and no tenderness Assessment & Plan Assessment & Plan (1) Well woman exam: Code(s): Z01.419 - Encounter for gynecological examination (general) (routine) without abnormal findings Plan: Cotesting not indicated this year. Counseled the patient about the recommended dietary allowance of 1000 mg of Calcium & 600 IU of vitamin D. The patient was instructed to perform monthly self-breast exams and to schedule an annual exam in a year; All questions answered and the patient verbalized understanding. Instructed the patient to schedule annual exam in a year Coding Level of Care Code Est Pt Prev Care 18-39y([id number]) Diagnoses Well woman exam Z01.419
[2023-08-20 10:42] VITALS: BP 110/76; BMI 36.0
== END 2023-08-20 11:19 | disposition home or self-care (01) ==
PROVIDERS: PCP Internal Medicine; Visit Provider Obstetrics & Gynecology
DX: Z01.419 Encounter for gynecological examination (general) (routine) without abnormal findings (principal)
CPT/HCPCS: 99395

== ENCOUNTER → 2023-08-20 10:34 | Outpatient (BNVA) | payer MEDICAID, SELFPAY | PROVIDERS: Visit Provider Obstetrics & Gynecology ==

== ENCOUNTER 2023-08-27 13:35 | Outpatient (REF) | payer MEDICAID, SELFPAY ==
[2023-08-27 14:54] LABS: Influenza A PCR NEGATIVE (Negative); Influenza B PCR NEGATIVE (Negative); Resp Syncy Virus RNA Qual PCR POSITIVE (Negative); SARS COV2 PCR INHOUSE NEGATIVE (Negative)
== END 2023-08-27 13:36 | disposition home or self-care (01) ==
LOC: HO.LNP 13:35
PROVIDERS: Visit Provider Emergency Medicine
DX: Z11.52 Encounter for screening for COVID-19 (principal); R68.89 Other general symptoms and signs
CPT/HCPCS: 0241U

== ENCOUNTER 2024-08-16 11:02 | Outpatient (REF) | payer MEDICAID, SELFPAY ==
[2024-08-16 13:27] LABS: MANUAL DIFF FLAG NO
[2024-08-16 13:39] LABS: Basophils Absolute Auto 0.1 X10*3/uL (0.0-0.2); Basophils Percent Auto 0.7 % (0-2); Eosinophils Absolute Auto 0.5 X10*3/uL (0.0-0.4); Eosinophils Percent Auto 4.8 % (0-4); Hematocrit 34.1 % (37.0-47.0); Hemoglobin 10.5 g/dl (12.0-16.0); Imm Gran Abs Auto 0.04 X10*3/uL (0.00-0.03); Imm Gran Pct Auto 0.4 % (0.0-0.4); Lymphocytes Absolute Auto 1.8 X10*3/uL (1.2-4.9); Lymphocytes Percent Auto 18.1 % (20-40); Mean Corpuscular HGB Conc 30.8 g/dl (31.0-35.0); Monocytes Absolute Auto 0.4 X10*3/uL (0.1-1.2); Monocytes Percent Auto 3.6 % (2-11); NRBC Pct Auto 0.2 /100WBC (0.0-0.2); Neutrophils Absolute Auto 7.3 x10*3/uL (2.0-8.3); Neutrophils Percent Auto 72.4 % (45-73); Platelet Count 343 X10*3/uL (160-400); Red Blood Count 5.83 X10*6/uL (4.20-5.50); Red Cell Distribution Width 18.3 % (11.0-16.0); White Blood Count 10.1 X10*3/uL (4.8-10.8)
[2024-08-16 13:40] LABS: Mean Corpuscular Volume 58.5 fL (80.0-98.0)
[2024-08-16 13:44] LABS: Estimated Average Glucose 88 mg/dL; Hemoglobin A1C 74.3618 umol/L; Hemoglobin A1c % 4.7 % (<6.0); Total Hemoglobin (HGBA1C) 2691.9883 umol/L
[2024-08-16 14:06] LABS: Alanine Aminotransferase 15 U/L (0-31); Albumin Level 4.4 g/dL (3.5-5.0); Alkaline Phosphatase 93 U/L (39-117); Anion Gap 13 (12-20); Aspartate Amino Transferase 21 U/L (5-31); Bilirubin Total 1.1 mg/dL (0.0-1.0); Blood Urea Nitrogen 6 mg/dL (9-16); Calcium 9.1 mg/dL (8.4-10.2); Carbon Dioxide 26 mmol/L (22-29); Chloride 102 mmol/L (96-108); Cholesterol 191 mg/dL (<200); Estimated Glomerular Filt Rate > 60; Glucose Random 80 mg/dL (60-115); HDL Cholesterol 41 mg/dL (>40); LDL Cholesterol Calculated 127 mg/dL (<100); Potassium 3.8 mmol/L (3.3-5.1); Sodium 137 mmol/L (135-145); Total Protein 7.3 g/dL (6.5-8.0); Triglycerides 116 mg/dL (<150)
[2024-08-16 14:09] LABS: TSH reflex Free T4 1.51 uIU/mL (0.32-4.0); Vitamin D 25-OH Total 26.4 ng/mL (>30)
[2024-08-17 08:07] LABS: HIV AB/AG Nonreactive (Nonreactive); HIV Num 1 0.05 S/CO (0.00-0.99); ~Hepatitis C Antibody Nonreactive (Nonreactive)
== END 2024-08-16 11:03 | disposition home or self-care (01) ==
LOC: HO.HHCL 11:02
PROVIDERS: Visit Provider Internal Medicine
DX: Z00.00 Encounter for general adult medical examination without abnormal findings (principal); Z11.4 Encounter for screening for human immunodeficiency virus [HIV]; F41.9 Anxiety disorder, unspecified; F32.A Depression, unspecified
CPT/HCPCS: 36415; 80053; 80061; 82306; 83036; 84443; 85025; 86803; 87389

== ENCOUNTER 2024-12-02 14:04 | Outpatient (REF) | payer MEDICAID, SELFPAY ==
--- NOTE | ~2024-12-02 | XR_ITS ---
EXAMINATION: XR LUMBAR SPINE 2-3 VIEWS HISTORY: persistent mid low back pain COMPARISON: There are no prior studies for comparison. FINDINGS: AP, lateral, and coned down views of the lumbar spine are submitted. Osseous mineralization is normal. There is slight leftward curvature which may be positional in nature. Five nonrib-bearing lumbar vertebral bodies are identified, maintaining normal height without evidence of fracture or spondylolisthesis. The intervertebral disc spaces are preserved. The posterior elements are intact. A 5 mm calcification in the right upper quadrant is likely related to the right kidney, as seen on prior renal ultrasound. XR/XR lumbar spine 2-3V IMPRESSION: 1. Mild leftward curvature which may be positional in nature. Otherwise unremarkable examination of the lumbar spine. 2. Probable 5 mm right renal calculus. Electronically signed by: Rainer Valencia MD 12/02/2024 02:48 PM EDT
--- OUTSIDE RECORDS SUMMARY | 2024-12-02 17:55 | XMS_ITS | Encounter Summary ---
Author Organization [facility] Address [address] [place] [address] Care Team Providers Care Wrap Checker Name Role Phone Mariely Trejo MD Primary Care Provide r Encounter Details Date Type Department Care Team (Latest Contact Info) Description 08/27/2021 Abstract C CONVERSIONS Dental, Provider, DDS Social History Tobacco Use Types Packs/Day Years Used Date Smoking Tobacco: Never Assessed Comments Unknown Sex and Gender Information Value Date Recorded Sex Assigned at Female 07/22/2022 10:32 AM EDT Legal Sex Female 10:32 AM EDT Gender Identity Female 07/22/2022 10:32 AM EDT Sexual Orientation Straight 07/22/2022 10 :32 AM EDT documented as of this encounter Plan of Treatment Not on file documented as of this encounter Visit Diagnoses Not on filedocumented in this encounter Care Teams Wrap Checker Relationship Specialty Start Date End Date Mariely Trejo MD [address] [place] [id number] PCP - General Family Medicine 08/05/19 documented as of this encounter
--- OUTSIDE RECORDS SUMMARY | 2024-12-02 17:55 | XMS_ITS | Encounter Summary ---
Author Organization [facility] Address [address] [facility] [address] [place] [address] Care Team Providers Care Postal Clerk Name Role Phone Mariely Trejo MD Primary Care Provide r Encounter Details Date Type Department Care Team ([facility] st Contact Info) Description 06/16/2023 Orders Only [facility] MEDICINE [address] [place], [place] [phone] Provider, Librado, Social History Tobacco Use Types Packs/Day Years [...] on file documented as of this encounter Procedures Procedure Name Priority Date/Time Associated Diagnosis Comments HM PAP/HPV Routine 07/19/2021 documented in this encounter Results * Hm Pap Smear (07/19/2021) us Historical Provider HEALTH MAINTENANCE Final Result documented in this encounter Visit Diagnoses Not on filedocumented in this encounter Care Teams Postal Clerk Relationship Specialty Start Date End Date Mariely Trejo MD [address] [place] [address] PCP - General Family Medicine 08/05/19 documented as of this encounter
--- OUTSIDE RECORDS SUMMARY | 2024-12-02 17:55 | XMS_ITS | Encounter Summary ---
Author Organization [employer] Address [address] [facility] [address] [place] [address] Care Team Providers Care World Designer Name Role Phone Mariely Trejo MD Primary Care Provide r Reason for Visit * Reason Comments Med Refill Encounter Details Date Type Department Care Team ([facility] Contact Info) Description 11/29/2024 Refill [facility] MEDICINE [address] [place], [place] [phone] Mariely Trejo MD [address] [place] [address] Allergic rhinitis, unspecified seasonality, unspecified trigger Social History Tobacco Use Types Packs/Day Years Used Date Smoking Tobacco: Never Smokeless Tobacco: Never Depression Answer Date Recorded Patient Health Questionnaire-9 Score 20 08/16/2024 Patient Health Questionnaire-9 Score 20 08/16/2024 Last PHQ-9: Questionnaire Data Not on file 1 10/16/2023 Housing Stability Answer Date Recorded What is your housing situation today? I have linda andrews 08/16/[address] you li ve. Do you have problems with any of the following? None of the above 08/16/2024 Food Insecurity Answer Date Recorded Within the past 12 months, y ou worried that your food would run out before you got money to buy more: Never True 08/16/2024 Within the past 12 months,th e food you bought just didn't last and you didn't have enough money to get more: Never True Transportation Answer Date Recorded In the past 12 months, has l ack of transportation kept you from medical appts, meetings, work or from getting things needed for daily living? No 08/16/2024 Utilities Answer Date Recorded In the past 12 months, has t he electric, gas, oil or water company threatened to shut off services in your home? No 08/16/2024 Depression Answer Date Recorded Patient Health Questionnaire-2 Score 4 08/16/2024 Internet Access Answer Date Recorded Internet Access Q1 Yes 08/16/2024 Internet Access Q2 Not on file 08/16/2024 Comments Unknown Sex and Gender Information Value Date Recorded Sex Assigned at Female 07/22/2022 10:32 AM EDT Legal Sex Female 10:32 AM EDT Gender Identity Female 07/22/2022 10:32 AM EDT Sexual Orientation Straight 07/22/2022 10 :32 AM EDT documented as of this encounter Plan of Treatment Not on file documented as of this encounter Visit Diagnoses Diagnosis Allergic rhinitis, unspecified seasonality, unspecified trigger documented in this encounter Additional Health Concerns Assessment Noted Time PHQ-9 Depression Total Score: 20 024 12:20 PM EST documented as of this encounter Care Teams World Designer Relationship Specialty Start Date End Date Mariely Trejo MD [address] [place] [address] PCP - General Family Medicine 08/05/19 documented as of this encounter
--- OUTSIDE RECORDS SUMMARY | 2024-12-02 17:55 | XMS_ITS | Encounter Summary ---
Author Organization [employer] [facility] Address [address] [facility] [address] [place] [address] Care Team Providers Care It Support Manager Name Role Phone Mariely Trejo MD Primary Care Provide r Encounter Details Date Type Department Care Team (Latest Contact Info) Description 11/25/2024 Travel Social History Tobacco Use Types Packs/Day Years [...] Diagnoses Not on filedocumented in this encounter Additional Health Concerns Assessment Noted Time PHQ-9 Depression Total Score: 20 024 12:20 PM EST documented as of this encounter Care Teams It Support Manager Relationship Specialty Start Date End Date Mariely Trejo MD [address] [place] [address] PCP - General Family Medicine 08/05/19 documented as of this encounter
--- OUTSIDE RECORDS SUMMARY | 2024-12-02 17:56 | XMS_ITS | Encounter Summary ---
Author Organization [facility] Address [address] [facility] [address] [place] [address] Care Team Providers Care Fiberglass Machine Operator Name Role Phone Mariely Trejo MD Primary Care Provide r Encounter Details Date Type Department Care Team (Latest Contact Info) Description 05/13/2019 Abstract [facility] CONVERSIONS Dental, Provider, DDS Social History Tobacco [...] on filedocumented in this encounter Care Teams Fiberglass Machine Operator Relationship Specialty Start Date End Date Mariely Trejo MD [address] [place] [id number] PCP - General Family Medicine 08/05/19 documented as of this encounter
--- OUTSIDE RECORDS SUMMARY | 2024-12-02 17:56 | XMS_ITS | Encounter Summary ---
Author Organization [employer] Address [address] [facility] [address] [place] [address] Care Team Providers Care Dough Panner Name Role Phone Mariely Trejo MD Primary Care Provide r Reason for Visit * Reason Onset Date Comments Med Refill 11/04/2024 Encounter Details Date Type Department Care Team ([facility] st Contact Info) Description 11/04/[address] [facility] MEDICINE [address] [place], [place] [phone] Mariely Trejo MD [address] [place], [place] [phone] Class 2 obesity Social History Tobacco Use Types Packs/Day Years [...] as of this encounter Visit Diagnoses Diagnosis Class 2 obesity documented in this encounter Additional Health Concerns Assessment Noted Time PHQ-9 Depression Total Score: 20 024 12:20 PM EST documented as of this encounter Care Teams Dough Panner Relationship Specialty Start Date End Date Mariely Trejo MD [address] [place] [address] PCP - General Family Medicine 08/05/19 documented as of this encounter
--- OUTSIDE RECORDS SUMMARY | 2024-12-02 17:56 | XMS_ITS | Encounter Summary ---
Author Organization [employer] Address [address] [facility] [address] [place] [address] Care Team Providers Care Uniform Patrol Police Officer Name Role Phone Mariely Trejo MD Primary Care Provide r Encounter Details Date Type Department Care Team ([facility] st Contact Info) Description 11/25/2024 10:45 AM EST Telemedicine [facility] MEDICINE [address] [place], [place] [phone] Mariely Trejo MD [address], [place] [phone] Acute bilateral low back pain without sciatica (Primary Dx); Class 2 obesity Social History Tobacco Use [...] AM EDT documented as of this encounter Progress Notes * Mariely Hudson MD - 11/25/2024 10:45 AM EST SUBJECTIVE: Manjinder Carrillo is a 39 y.o. year old female who presents for Follow up . Patient is now 167lbs from 192 pounds, patient reports she is doing well with stepdown she denies side effects like nausea vomiting, diarrhea or constipation Acute Concerns: Patient today told me that she hurt her lower back while she was washing her dog, reports acute pain on her lower back it does not radiate it just stays there describes the pain as muscular pain and spasm she is taking right now nabumetone it does help a little, denies sphincter relaxation weaknessor numbness Social History Social History Narrative Not on file Patient Active Problem List Diagnosis Anxiety and depression Encounter for preventive health examination GERD (gastroesophageal reflux disease) Loud snoring Elevated blood pressure reading Anemia Chronic gastritis Chronic low back pain Endometriosis Thalassemia trait Class 2 obesity Mixed anxiety and depressive disorder Blood in stool Allergic rhinitis Acute bilateral low back pain without sciatica No family history on file. Review of Systems Constitutional: Negative. HENT: Negative. Respiratory: Negative. Cardiovascular: Negative. Musculoskeletal: Positive for back pain and myalgias. Follow Up: No follow-ups on file. Current Outpatient Medications on File Prior to Visit Medication Sig Dispense Refill fluticasone (Flonase) 50 MCG/ACT nasal spray Administer 1-2 sprays into each nostril Once per day. Shake gently. Before first use, prime pump. After use, clean tip and replace cap. 16 g 2 Spacer/Aero-Holding Chambers (OptiChamber Sera) misc 1 each every 4 (four) hours if needed (asthma). 1 each 0 Tirzepatide-Weight Management (Zepbound) 2.5 MG/0.5ML solution auto-injector Inject 0.5 mL (2.5 mg)under the skin 1 (one) time per week. 2 mL 0 Tirzepatide-Weight Management (Zepbound) 5 MG/0.5ML solution auto-injector Inject 0.5 mL (5 mg) under the skin 1 (one) time per week. INJECT ONE PEN (= 5MG ) SUBCUTANEOUSLY ONCE A WEEK 2 mL 0 Ventolin HFA 108 (90 Base) MCG/ACT inhaler INHALE 2 PUFFS INTO LUNGS EVERY 4 HOURS IF NEEDED FOR WHEEZING OR SHORTNESS OF BREATH. 18 g 1 No current facility-administered medications on file prior to visit. Problem List Items Addressed This Visit Acute bilateral low back pain without sciatica - Primary I advised to apply heat on the affected area Continue with nabumetone 500 mg twice a day I prescribed for patient Flexeril 5 mg every 8 hours, patient was counseled about side effects especially somnolence I told her she cannot drive or do any activity that requires her concentration while on this medication Relevant Medications cyclobenzaprine (Flexeril) 5 MG tablet Class 2 obesity Extensive counseling about healthy diet and exercise done today Patient is now on her second dose of Zepbound 5 mg weekly she will finish 4 weeks of this dose and then plan is to go up to 7.5 mg weekly documented in this encounter Miscellaneous Notes * Assessment & Plan Note - Mariely Hudson MD - 11/25/2024 10:57 AM EST Associated Problem(s): Class 2 obesity Extensive counseling about healthy diet and exercise done today Patient is now on her second dose of Zepbound 5 mg weekly she will finish 4 weeks of this dose and then plan is to go up to 7.5 mg weekly * Assessment & Plan Note - Mariely Hudson MD - 11/25/2024 10:56 AM EST Associated Problem(s): Acute bilateral low back pain without sciatica I advised to apply heat on the affected area Continue with nabumetone 500 mg twice a day I prescribed for patient Flexeril 5 mg every 8 hours, patient was counseled about side effects especially somnolence I told her she cannot drive or do any activity that requires her concentration while on this medication documented in this encounter Plan of Treatment Not on file documented as of this encounter Visit Diagnoses Diagnosis Acute bilateral low back pain without sciatica- Primary Class 2 obesity documented in this encounter Additional Health Concerns Assessment Noted Time PHQ-9 Depression Total Score: 20 024 12:20 PM EST documented as of this encounter Care Teams Uniform Patrol Police Officer Relationship Specialty Start Date End Date Mariely Trejo MD [address] [place] [id number] PCP - General Family Medicine 08/05/19 documented as of this encounter
--- OUTSIDE RECORDS SUMMARY | 2024-12-02 17:56 | XMS_ITS | Clinical Summary ---
Author Organization [employer] [facility] ity Address [address] [place] [address] Care Team Providers Care Hat Mender Name Role Phone Unavailable Primary Care Provider Unavailabl e Social History Tobacco Use Types Packs/Day Years Used Date Smoking Tobacco: Never Assessed Comments Unknown Sex and Gender Information Value Date Recorded Sex Assigned at Not on file Legal Sex Female 4:57 AM EST Gender Identity Not on file Sexual Orientation Not on file Plan of Treatment Health Maintenance Due Date Last Done Comments Breast Cancer Screening 1984 DTaP,Tdap,and Td Vaccines (1 - Tdap) 2003 Hepatitis B Vaccines (1 of 3 - 19+ 3-dose series) 2003 Cervical Cancer Screening: P ap Smear 2005 Depression Screening 10/21/2023 HIV Screening 10/21/2023 Hepatitis C Screening 10/21/2023 Social Influencers of Health Screening 10/21/2023 COVID-19 Vaccine (2023-2 5 season) 2024 Influenza Vaccine (#1) 2024 HIB Vaccines Aged Out No longer eligi ble based on patient's age to complete this topic HPV Vaccines Aged Out No longer eligi ble based on patient's age to complete this topic Hepatitis A Vaccines Aged Out No long er eligible based on patient's age to complete this topic IPV Vaccines Aged Out No longer eligi ble based on patient's age to complete this topic MMR Vaccines Aged Out No longer eligi ble based on patient's age to complete this topic Meningococcal ACWY Vaccine Aged Out N o longer eligible based on patient's age to complete this topic Meningococcal B Vacine Aged Out No lo nger eligible based on patient's age to complete this topic Pneumococcal Vaccine: Pediat rics (0 to 5 Years) and At-Risk Patients (6 to 64 Years) Aged Out No longer eligible b ased on patient's age to complete this topic RSV Immunization Patients Un kristin 20 months Aged Out No longer eligible b ased on patient's age to complete this topic Varicella Vaccines Aged Out No longer eligible based on patient's age to complete this topic
--- OUTSIDE RECORDS SUMMARY | 2024-12-02 17:56 | XMS_ITS | Encounter Summary ---
Author Organization [employer] Address [address] [facility] [address] [place] [address] Care Team Providers Care Feeder Operator Name Role Phone Mariely Trejo MD Primary Care Provide r Reason for Visit * Reason Comments Back Pain Encounter Details Date Type Department Care Team ([facility] Contact Info) Description 12/02/2024 1:40 PM EDT Office Visit [facility] [address] [place], [place] [phone] Syl Butler DO [address] [place], [place] [phone] Acute bilateral low back pain without sciatica (Primary Dx) Social History Tobacco Use Types Packs/Day Years [...] AM EDT documented as of this encounter Last Filed Vital Signs Vital Sign Reading Time Taken Comments Blood Pressure 110/76 12/02/2024 1:08 PM EDT Pulse 90 12/02/2024 1:08 PM EDT Temperature 36.8 ??C (98.2 ??F) 12/02/2024 1:08 PM ED T Respiratory Rate 16 12/02/2024 1:08 PM EDT Oxygen Saturation 98% 12/02/2024 1:08 PM EDT Inhaled Oxygen Concentration - - Weight 77.1 kg (170 lb) 12/02/2024 1:08 PM EDT Height - - Body Mass Index 31.09 08/16/2024 9:54 AM EST documented in this encounter Progress Notes * Syl Butler, DO - 12/02/2024 1:40 PM EDT SUBJECTIVE Manjinder Carrillo is a 39 y.o. female who presents for Sick Visit. She presents to CT c/o back pain for nearly two weeks. She had telemedicine visit with PCP last week c/o LBP and was advised to continue nabumetone and started on flexeril. She went to [facility] two days later with continued pain. She had decreased ROM with nml neuro exam. She was given a dose of toradol and advised to take home medications. She comes in today c/o continued pain. She says that the pain is in the middle of her low back. Shedenies any radiation of pain or LE numbness/tingling. No bowel/bladder incontinence. She says that the pain started when she was bending over a tub to bathe/groom her dog. 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 She was unable to complete her afternoon run yesterday. History provided by: Patient and spouse generation engineer used: No Back Pain This is a new problem. The current episode started 1 to 4 weeks ago. The problem occurs constantly.The problem has been waxing and waning since onset. The pain is present in the lumbar spine and sacro-iliac. The quality of the pain is described as aching. The pain does not radiate. The pain is at a severity of 8/10. The pain is The same all the time. The symptoms are aggravated by bending. Pertinent negatives include no abdominal pain, bladder incontinence, bowel incontinence, chest pain, dysuria, fever, headaches, leg pain, numbness, paresthesias, tingling or weakness. The treatment provided mild relief. Review of Systems Constitutional: Negative for activity change, appetite change, chills, fever and unexpected weight change. Respiratory: Negative for cough and shortness of breath. Cardiovascular: Negative for chest pain, palpitations and leg swelling. Gastrointestinal: Negative for abdominal pain, bowel incontinence, diarrhea, nausea and vomiting. Genitourinary: Negative for bladder incontinence, dysuria, frequency, hematuria and urgency. Musculoskeletal: Positive for back pain. Neurological: Negative for tingling, weakness, numbness, headaches and paresthesias. Patient Active Problem List Diagnosis Anxiety and depression Encounter for preventive health examination GERD (gastroesophageal reflux disease) Loud snoring Elevated blood pressure reading Anemia Chronic gastritis Chronic low back pain Endometriosis Thalassemia trait Class 2 obesity Mixed anxiety and depressive disorder Blood in stool Allergic rhinitis Acute bilateral low back pain without sciatica Allergies Allergen Reactions Latex Other Reaction(s): redness to hands/irritation OBJECTIVE Visit Vitals BP 110/76 (BP Location: Right arm, Patient Position: Sitting, BP Cuff Size: Adult) Pulse 90 Temp 98.2 ??F (36.8 ??C) (Temporal) Resp 16 Wt 170 lb (77.1 kg) SpO2 98% BMI 31.09 kg/m?? Smoking Status Never BSA 1.84 m?? Physical Exam Constitutional: General: She is not in acute distress. Appearance: Normal appearance. Cardiovascular: Rate and Rhythm: Normal rate and regular rhythm. Heart sounds: Normal heart sounds. No murmur heard. Pulmonary: Effort: Pulmonary effort is normal. Breath sounds: Normal breath sounds. No wheezing or rhonchi. Musculoskeletal: Lumbar back: Tenderness present. No swelling, deformity or bony tenderness. Decreased range of motion. Negative right straight leg raise test and negative left straight leg raise test. Comments: B/l SI joint TTP Neurological: General: No focal deficit present. Mental Status: She is alert and oriented to person, place, and time. Cranial Nerves: No cranial nerve deficit. Sensory: Sensation is intact. Motor: No weakness. Gait: Gait is intact. Deep Tendon Reflexes: Reflex Scores: Patellar reflexes are 2+ on the right side and 2+ on the left side. Comments: She is able to toe and heel walk without difficulty Psychiatric: Mood and Affect: Mood normal. Assessment/Plan Diagnoses and all orders for this visit: Acute bilateral low back pain without sciatica With mild mm spasm, SI joint TTP and nml neuro exam, likely mechanical -provided reassurance -referred for L-spine xrays -treat with medrol dose lizzeth -change flexeril to baclofen to help with mm spasm -advised naprosyn BID x one week then prn, alternate with motrin as needed -trial diclofenac gel and lidocaine patches -encouraged heat therapy -encouraged ROM exercises -advised consider PT if no improvement -advised rtc if sx change or worsen, she agrees with plans - XR Lumbar Spine 2-3 Views; Future --Follow-up with PCP as scheduled or sooner prn-- Current Outpatient Medications: acetaminophen (Tylenol 8 Hour) 650 MG ER tablet, Take 1 tablet (650 mg) by mouth every 8 (eight) hours if needed for mild pain. Do not crush, chew, or split., Disp: 40 tablet, Rfl: 1 baclofen (Lioresal) 10 MG tablet, Take 1 tablet (10 mg) by mouth if needed in the morning, at noon,and at bedtime for muscle spasms., Disp: 60 tablet, Rfl: 1 Diclofenac Sodium 1 % gel, Apply 2 g topically if needed in the morning, at noon, in the evening, and at bedtime (pain)., Disp: 150 g, Rfl: 3 fluticasone (Flonase) 50 MCG/ACT nasal spray, SPRAY 1 TO 2 SPRAYS INTO EACH NOSTRIL ONCE PER DAY. SHAKE GENTLY. BEFORE FIRST USE, PRIME PUMP. AFTER USE, CLEAN TIP AND REPLACE CAP., Disp: 48 mL, Rfl: 0 lidocaine (Lidoderm) 5 % patch, Apply 1-2 patches topically if needed each day for mild pain. Remove & discard patch within 12 hours or as directed by MD., Disp: 60 patch, Rfl: 1 methylPREDNISolone (Medrol Dospak) 4 MG tablets, Follow schedule on package instructions, Disp: 21 tablet, Rfl: 0 naproxen (Naprosyn) 500 MG tablet, Take 1 tablet (500 mg) by mouth if needed in the morning and at bedtime for mild pain., Disp: 40 tablet, Rfl: 1 Spacer/Aero-Holding Chambers (OptiChamber Sera) misc, 1 each every 4 (four) hours if needed (asthma)., Disp: 1 each, Rfl: 0 Tirzepatide-Weight Management (Zepbound) 2.5 MG/0.5ML solution auto-injector, Inject 0.5 mL (2.5 mg) under the skin 1 (one) time per week., Disp: 2 mL, Rfl: 0 Tirzepatide-Weight Management (Zepbound) 5 MG/0.5ML solution auto-injector, Inject 0.5 mL (5 mg) under the skin 1 (one) time per week. INJECT ONE PEN (= 5MG ) SUBCUTANEOUSLY ONCE A WEEK, Disp: 2 mL, Rfl: 0 Ventolin HFA 108 (90 Base) MCG/ACT inhaler, INHALE 2 PUFFS INTO LUNGS EVERY 4 HOURS IF NEEDED FOR WHEEZING OR SHORTNESS OF BREATH., Disp: 18 g, Rfl: 1 documented in this encounter Plan of Treatment Not on file documented as of this encounter Procedures Procedure Name Priority Date/Time Associated Diagnosis Comments XR LUMBAR SPINE 2-3 VIEWS Routine 12/02/2024 2:04 PM EDT Acute bilateral low back pain without sciatica documented in this encounter Results * XR Lumbar Spine 2-3 Views (12/02/2024 2:04 PM EDT) Anatomical Region Laterality Modality Spine, L-spine Radiographic Shannan ging 12/02/2024 2:04 PM EDT Narrative 12/02/2024 2:52 PM EDT ?[facility] ?[address] ?[place], [place] [address] ?XRay Report ? Signed ? Patient: Gerardo,Manjinder ?MR#: [id number] ?? [id number] ? : 1985 ?Acct:[id number] ? Age/Sex: 39 / F ?ADM Date: 12/02/24 ? Loc: HO.[facility] ? Attending Dr: Syl Butler DO ? Ordering Physician: Syl Butler DO ?? Date of Service: 12/02/24 ?? Procedure(s): XR lumbar spine 2-3V ?? Accession Number(s): [id number] ? cc: Syl Butler DO ? EXAMINATION: ??XR LUMBAR SPINE 2-3 VIEWS ? HISTORY: persistent mid low back pain ? COMPARISON: There are no prior studies for comparison. ? FINDINGS: ??AP, lateral, and coned down views of the lumbar spine are ?? submitted. ??Osseous mineralization is normal. ??There is slight leftward ?? curvature which may be positional in nature. Five nonrib-bearing lumbar ?? vertebral bodies are identified, maintaining normal height without ?? evidence of fracture or spondylolisthesis. ??The intervertebral disc ?? spaces are preserved. ??The posterior elements are intact. ??A 5 mm ?? calcification in the right upper quadrant is likely related to the ?? right kidney, as seen on prior renal ultrasound. ? XR/XR lumbar spine 2-3V ?? IMPRESSION: ? 1. Mild leftward curvature which may be positional in nature. Otherwise ?? unremarkable examination of the lumbar spine. ? 2. Probable 5 mm right renal calculus. ? Electronically signed by: ??Rainer Valencia MD ??12/02/2024 02:48 PM EDT ?? RP ? Dictated By: ?Rainer Valencia MD ? Signed By: ?<Electronically signed by Rainer Valencia MD in OV> ?12/02/24 1448 ? DD/ 1404 ? TD/TT: 12/02/24 1430 ? Child Life Therapist: ? Procedure Note Donotuseinterpreter, Image - 12/02/[address] [address] XRay Report Signed Patient: Manjinder CarrilloMR#: [id number] : 1985Acct:[id number] Age/Sex: 39 / FADM Date: 12/02/24 [facility]: Syl Butler DO Ordering Physician: Syl Butler DO Date of Service: 12/02/24 Procedure(s): XR lumbar spine 2-3V Accession Number(s): [id number] cc: Syl Butler DO EXAMINATION: XR LUMBAR SPINE 2-3 VIEWS HISTORY: persistent mid low back pain COMPARISON: There are no prior studies for comparison. FINDINGS: AP, lateral, and coned down views of the lumbar spine are submitted. Osseous mineralization is normal. There is slight leftward curvature which may be positional in nature. Five nonrib-bearing lumbar vertebral bodies are identified, maintaining normal height without evidence of fracture or spondylolisthesis. The intervertebral disc spaces are preserved. The posterior elements are intact. A 5 mm calcification in the right upper quadrant is likely related to the right kidney, as seen on prior renal ultrasound. XR/XR lumbar spine 2-3V IMPRESSION: 1. Mild leftward curvature which may be positional in nature. Otherwise unremarkable examination of the lumbar spine. 2. Probable 5 mm right renal calculus. Electronically signed by: Rainer Valencia MD 12/02/2024 02:48 PM EDT Dictated By: Rainer Valencia MD Signed By: <Electronically signed by Rainer Valencia MD in OV> 12/02/24 1448 DD/ 1404 TD/TT: 12/02/24 1430 Child Life Therapist: Syl Butler DO IMG XR PROCEDURES Edited Res ult - Final documented in this encounter Visit Diagnoses Diagnosis Acute bilateral low back pain without sciatica- Primary documented in this encounter Additional Health Concerns Assessment Noted Time PHQ-9 Depression Total Score: 20 024 12:20 PM EST documented as of this encounter Care Teams Feeder Operator Relationship Specialty Start Date End Date Mariely Trejo MD [address] [place] [address] PCP - General Family Medicine 08/05/19 documented as of this encounter
--- OUTSIDE RECORDS SUMMARY | 2024-12-02 17:56 | XMS_ITS | Clinical Summary ---
Author Organization [employer] Address [address] [place] [address] [address] [place] [address] Care Team Providers Care Rebar Bender Name Role Phone Mariely Trejo MD Primary Care Provide r Allergies Active Allergy Reactions Criticality Noted Date Comments Latex 12/07/2018 Other Reaction(s): redness to hands/irritation Medications Spacer/Aero-Ho lding Chambers (OptiChamber Sera) misc 1 each every 4 (four) hours if needed (asthma). 1 each 023 Active Ventolin HFA 108 (90 Base) MCG/ACT inhaler INHALE 2 PUFFS INTO LUNGS EVERY 4 HOURS IF NEEDED FOR WHEEZING OR SHORTNESS OF BREATH. 18 g 1 024 Active Tirzepatide-We ight Management (Zepbound) 2.5 MG/0.5ML solution auto-injectorI ndications:Cla ss 2 obesity Inject 0.5 mL (2.5 mg) under the skin 1 (one) time per week. 2 mL 025 Active Tirzepatide-We ight Management (Zepbound) 5 MG/0.5ML solution auto-injector Inject 0.5 mL (5 mg) under the skin 1 (one) time per week. INJECT ONE PEN (= 5MG ) SUBCUTANEOUSLY ONCE A WEEK 2 mL 025 Active fluticasone (Flonase) 50 MCG/ACT nasal sprayIndicatio ns:Allergic rhinitis, unspecified seasonality, unspecified trigger SPRAY 1 TO 2 SPRAYS INTO EACH NOSTRIL ONCE PER DAY. SHAKE GENTLY. BEFORE FIRST USE, PRIME PUMP. AFTER USE, CLEAN TIP AND REPLACE CAP. 48 mL Active methylPREDNISo lone (Medrol Dospak) 4 MG tablets Follow schedule on package instructions 21 tablet 025 2024 Active naproxen (Naprosyn) 500 MG tablet Take 1 tablet (500 mg) by mouth if needed in the morning and at bedtime for mild pain. 40 tablet 1 025 2025 Active baclofen (Lioresal) 10 MG tablet Take 1 tablet (10 mg) by mouth if needed in the morning, at noon, and at bedtime for muscle spasms. 60 tablet 1 025 2024 Active acetaminophen (Tylenol 8 Hour) 650 MG ER tablet Take 1 tablet (650 mg) by mouth every 8 (eight) hours if needed for mild pain. Do not crush, chew, or split. 40 tablet 1 025 2024 Active Diclofenac Sodium 1 % gel Apply 2 g topically if needed in the morning, at noon, in the evening, and at bedtime (pain). 150 g 3 Active lidocaine (Lidoderm) 5 % patch Apply 1-2 patches topically if needed each day for mild pain. Remove & discard patch within 12 hours or as directed by MD. 60 patch 1 Active fluticasone (Flonase) 50 MCG/ACT nasal sprayIndicatio ns:Allergic rhinitis, unspecified seasonality, unspecified trigger Administer 1-2 sprays into each nostril Once per day. Shake gently. Before first use, prime pump. After use, clean tip and replace cap. 16 g 2 024 2024 Discontinued cyclobenzaprin e (Flexeril) 5 MG tabletIndicati ons:Acute bilateral low back pain without sciatica Take 1 tablet (5 mg) by mouth 3 times daily for 10 days. 30 tablet 025 2024 Discontinued Active Problems Problem Noted Date Diagnosed Date Acute bilateral low back pain without sciatica 0 11/25/2024 Assessment & Plan (11/25/2024 10:56 AM EST): I advised to apply heat on the affected area Continue with nabumetone 500 mg twice a day I prescribed for patient Flexeril 5 mg every 8 hours, patient was counseled about side effects especially somnolence I told her she cannot drive or do any activity that requires her concentration while on this medication Allergic rhinitis 08/16/2024 Blood in stool 09/18/2023 Chronic gastritis 09/17/2023 09/17/2023 Chronic low back pain 09/17/2023 09/17/2023 Anxiety and depression 08/13/2023 Assessment & Plan (08/13/2023 12:52 PM EST): Counseling done continue to follow with therapist and psychiatrist Encounter for preventive health examination 07/24 Assessment & Plan (08/16/2024 1:24 PM EST): See HPI GERD (gastroesophageal reflux disease) Assessment & Plan (08/13/2023 12:52 PM EST): I advise patient to avoid NSAIDs, spicy and acid food, I advise to eat at the same time every day, I advise to elevate the head of the bed and take medications as prescribe Loud snoring 08/13/2023 Elevated blood pressure reading 08/13/2023 Assessment & Plan (08/13/2023 12:52 PM EST): I advise low Na diet and weight reduction Monitor BP at home come back in 2 weeks with log if BP is not at goal my plan is to start her on hydrochlorothiazide 12.5mg daily Endometriosis 12/24/2018 09/17/2023 Anemia 09/11/2017 09/17/2023 Thalassemia trait 09/11/2017 09/17/2023 Class 2 obesity 09/11/2017 09/17/2023 Assessment & Plan (11/25/2024 10:57 AM EST): Extensive counseling about healthy diet and exercise done today Patient is now on her second dose of Zepbound 5 mg weekly she will finish 4 weeks of this dose and then plan is to go up to 7.5 mg weekly Assessment & Plan (10/06/2024 1:18 PM EST): I will start zepbound prescription for patient Mixed anxiety and depressive disorder 09/11/2017 09/17/2023 Encounters Date Type Department Care Team Description 12/02/2024 1:40 PM EDT Office Visit [facility] [address] [place] [phone] Syl Butler DO Acute bilateral low back pain without sciatica (Primary Dx) 11/29/2024 Refill [facility] [address] [place] [phone] Mariely Trejo MD Allergic rhinitis, unspecified seasonality, unspecified trigger 11/25/2024 10:45 AM EST Telemedicine [facility] [address] [place] [phone] Mariely Trejo MD Acute bilateral low back pain without sciatica (Primary Dx); Class 2 obesity 11/25/2024 Travel 11/04/2024 Refill [facility] [address] [place] [phone] Mariely Trejo MD Class 2 obesity 10/06/2024 11:30 AM EST Telemedicine [facility] [address] [place] [phone] Mariely Trejo MD Class 2 obesity (Primary Dx) 10/06/2024 Travel from Last 3 Months Immunizations Name Administration Dates Next Due DTaP 02/10/1989, 6,1984,09/02,1984 Hep B, Adolescent or Pediatric 02/26/2000,1998,07/31/1999 IPV 02/10/1989, 6,1984,08/23,1984 Influenza injectable quadriv alent IIV4 with preservative 09/11/2017 Influenza injectable quadriv alent preservative free 08/13/2023,07/12/2022 MMR 03/31/1986 Measles / Rubella 11/27/1993 Pneumococcal Polysaccharide PPSV23 03/11/2011 Td (adult), unspecified 05/15/1998 Tdap 07/12/2022,02/18/2011 Social History Tobacco Use Types Packs/Day Years Used Date Smoking Tobacco: Never Smokeless Tobacco: Never Tobacco Cessation:Counseling Given: Not Answered Depression Answer Date Recorded Patient Health Questionnaire-9 [...] Orientation Straight 07/22/2022 10 :32 AM EDT Last Filed Vital Signs Vital Sign Reading Time Taken Comments Blood Pressure 110/76 12/02/2024 1:08 PM EDT Pulse 90 12/02/2024 1:08 PM EDT Temperature 36.8 ??C (98.2 ??F) 12/02/2024 1:08 PM ED T Respiratory Rate 16 12/02/2024 1:08 PM EDT Oxygen Saturation 98% 12/02/2024 1:08 PM EDT Inhaled Oxygen Concentration - - Weight 77.1 kg (170 lb) 12/02/2024 1:08 PM EDT Height 157.5 cm (5' 2 ) 08/16/2024 9:54 AM EST Body Mass Index 31.09 08/16/2024 9:54 AM EST Plan of Treatment Health Maintenance Due Date Last Done Comments Family Planning (PISQ) 1999 Mammogram 2024 COVID-19 Vaccine ( season) 2024 09/05/2022, 01/23/2021, 01/02/2021 Influenza Vaccine (#1) 2024 , 07/12/2022, 09/11/2017 Depression Monitoring (PHQ-9) 02/13/2025 08/16/2024, 08/16/2024 Alcohol/Substance Use Screening 08/16/2025 08/16/2024 Depression Screening 08/16/2025 08/16/2024, 08/16/20 SDOH Screening 08/16/2025 08/16/2024 Tobacco Screening 08/16/2025 08/16/2024 Cervical Cancer Screening 07/19/2026 HPV/Cotest 07/19/2026 07/19/2021, 06/23, 12/30/2018 Pap Smear 07/19/2026 07/19/2021 Lipid Panel 08/16/2029 08/16/2024, 06/23, 06/12/2020 DTaP/Tdap/Td Vaccines (8 - Td or Tdap) 07/12/2032 07/12/2022, 02/18/2011, 05/15/1998, Additional history exists Zoster Vaccines (1 of 2) 2034 RSV Patients and Patients Aged 60 years or older (1 - 1-dose 75+ series) 2059 IPV Vaccines Completed 02/10/1989, 04/22, 1984, Additional history exists Hepatitis B Vaccines Completed 02/26/2000, 08/30/1999, 07/31/1999 Pneumococcal Vaccine: Pediatrics (0 to 5 Years) and At-Risk Patients (6 to 49) Years) Aged Out 03/11/2011 No longer eligible based on patient's age to complete this topic HIV Screening Completed 08/16/2024, 07/12/2022 Hepatitis C Screening Completed 08/16/2024, 022 HIB Vaccines Aged Out No longer eligi ble based on patient's age to complete this topic HPV Vaccines Aged Out No longer eligi ble based on patient's age to complete this topic Hepatitis A Vaccines Aged Out No long er eligible based on patient's age to complete this topic Meningococcal Vaccine Aged Out No abisai aster eligible based on patient's age to complete this topic RSV under 20 months Aged Out No longe r eligible based on patient's age to complete this topic Rotavirus Vaccines Aged Out No longer eligible based on patient's age to complete this topic Procedures Procedure Name Priority Date/Time Associated Diagnosis Comments XR LUMBAR SPINE 2-3 VIEWS Routine 12/02/2024 2:04 PM EDT Acute bilateral low back pain without sciatica HEPATITIS C AB W/REFL TO HCV RNA, QN, PCR Routine 08/16/2024 11:05 AM EST Encounter for preventive health examination HIV 1/2 ANTIGEN/ANTIBODY, FOURTH GENERATION W/RFL Routine 08/16/2024 11:05 AM EST Encounter for preventive health examination LIPID PANEL, STANDARD Routine 08/16/2024 11:05 AM EST Anxiety and depression ZZZ HISTORICAL HPV E6/E7 RFLX ANDREI 16 18/45 Routine 07/19/2021 8:28 AM EDT HM PAP/HPV Routine 07/19/2021 from Last 3 Months or Most Recently Relevant to Health Maintenance Results * XR Lumbar Spine 2-3 Views (12/02/2024 2:04 PM EDT) Anatomical Region Laterality Modality Spine, L-spine Radiographic Shannan ging 12/02/2024 2:04 PM EDT Narrative 12/02/2024 2:52 PM EDT ?[facility] ?[address] ?[place] [address] ?XRay Report ? Signed ? Patient: Gerardo,Vickmari ?MR#: [id number] ?? [id number] ? : 1985 ?Acct:[id number] ? Age/Sex: 39 / F ?ADM Date: 12/02/24 ? Loc: HO.HHCX ? Attending Dr: Syl Butler DO ? Ordering Physician: Syl Butler DO ?? Date of Service: 12/02/24 ?? Procedure(s): XR lumbar spine 2-3V ?? Accession Number(s): [id number] ? cc: Syl Butler DO ? EXAMINATION: [...] DD/ 1404 ? TD/TT: 12/02/24 1430 ? Bicycle Repair Technician: ? Procedure Note Phong Irving - 12/02/2024 [facility] [address] [place] [address] XRay Report Signed Patient: Daniel CarrillodonavanMR#: [id number] : 1985Acct:[id number] Age/Sex: 39 / FADM Date: 12/02/24 Loc: HO.HHCX Attending Dr: Syl Butler DO Ordering Physician: Syl Butler DO Date of Service: 12/02/24 Procedure(s): XR lumbar spine 2-3V Accession Number(s): [id number] cc: Syl Butler DO EXAMINATION: XR LUMBAR [...] 12/02/24 1448 DD/ 1404 TD/TT: 12/02/24 1430 Bicycle Repair Technician: Syl Butler DO IMG XR PROCEDURES Edited Res ult - Final * Hepatitis C Antibody with Reflex to HCV, RNA, Quantitative, Real-Time PCR (08/16/2024 11:05 AM EST) Hepatitis C Antibody Nonreactive Nonreactive [facility] Comment:Antibodies to HCV no t detected; does not exclude early acuteHCV infection. Blood Venous blood specimen / Unknown 08/16/2024 11:05 AM EST 08/16/2024 1:14 PM EST us Mariely Hudson MD LAB BLOOD ORDERABLES Final Result Performing Organization Address City/[facility]/ZIP Co de Phone Number [facility] [address] [place] [phone] * HIV-1/2 Antigen and Antibodies, Fourth Generation, with Reflexes (08/16/2024 11:05 AM EST) HIV AB/AG Nonreactive Nonreactive [facility] Comment:HIV-1 p24 Ag and/or HIV-1/HIV-2 Ab not detected.A test result that is nonreactive does not exclude thepossibility of exposure to or infection with HIV-1 and/orHIV-2. Nonreactive results in this assay for individualswith prior exposure to HIV-1 and/or HIV-2 may be due toantigen and antibody levels that are below the limit ofdetection of this assay.The [facility] HIV Ag/Ab Combo assay result andsupplemental assay results should be interpreted inconjunction with the patient's clinical presentation,history and other laboratory results. If the results areinconsistent with clinical evidence, additional testing issuggested to confirm the result. Blood Venous blood specimen / Unknown 08/16/2024 11:05 AM EST 08/16/2024 1:14 PM EST us Mariely Hudson MD LAB BLOOD ORDERABLES Final Result Performing Organization Address City/[facility]/ZIP Co de Phone Number [facility] [address] [place] [phone] * (ABNORMAL) Lipid Panel, Standard (08/16/2024 11:05 AM EST) Triglycerides 116 <150 mg/dL [facility] Comment:Desirable Triglyceri de: less than 150 mg/dLBorderline High Triglyceride 150-199 mg/dLHigh Triglyceride: 200-499 mg/dLVery High Triglyceride: greater than or equal to 5OO mg/dL Cholesterol 191 <200 mg/dL [facility] Comment:Desirable Cholestero l: less than 200 mg/dLBorderline High Cholesterol: 200-239 mg/dLHigh Cholesterol: greater than 239 mg/dL LDL Cholesterol Calculated 127(H) <100 mg/dL [facility] Comment:Desirable LDL: less than 100 mg/dLNear Optimal/Above Optimal LDL: 110- 129 mg/dLBorderline High LDL: 130-159 mg/dLHigh LDL: 160-189 mg/dLVery High LDL: greater than or equal to 190 mg/dL HDL Cholesterol 41 >40 mg/dL [facility] Comment:Desirable HDL: great er than 40 mg/dL Note: This HDL assay may give artificially low results in patients with liver disease. Blood Venous blood specimen / Unknown 08/16/2024 11:05 AM EST 08/16/2024 1:14 PM EST Mariely Hudson MD LAB BLOOD ORDERABLES Final Result [facility] [address] [place] [phone] * HPV E6/E7 RFLX ANDREI 16 18/45 (07/19/2021 8:28 AM EDT) HPV 16 RNA [facility]NP [facility] HPV 18/45 RNA [facility] HPV E6 E7 ADD [facility]NP [facility] HPV mRNA E6/E7 rflx Not Detected Not Detected [facility] Comment: Methodology: Shift Foreman-Mediated Amplification This assay detects E6/E7 viral messenger RNA (mRNA) from 14 high-risk HPV types (16,18,31,33,35,39,45,51,52,56,58,59,66,68). The analytical performance characteristics of this assay have been determined by [facility]. The modifications have not been cleared or approved by the FDA. This assay has been validated pursuant to the CLIA regulations and is used for clinical purposes. For additional information, please refer to http://education.[employer]/faq/LWN408s5 (This link if provided for information/ educational purposes only.) THIS TEST WAS PERFORMED AT: [facility] [address] [place] [address],[address] [place], [place] ??[phone] FADY EMERSON MD 07/19/2021 8:28 AM EDT Cornel Shelley MD HISTORICAL/NON ORDERABLE LABS Fi nal Result [facility] [address] * Hm Pap Smear (07/19/2021) Historical Provider HEALTH MAINTENANCE Final Result from Last 3 Months or Most Recently Relevant to Health Maintenance [facility] Care Teams Rebar Bender Relationship Specialty Start Date End Date Mariely Trejo MD [address] [place] [address] PCP - General Family Medicine 08/05/19
--- OUTSIDE RECORDS SUMMARY | 2024-12-02 17:56 | XMS_ITS | Encounter Summary ---
Author Organization [facility] [facility] Address [address] [place] [address] Care Team Providers Care Machine Assembler For Puller Over Name Role Phone Mariely Trejo MD Primary Care Provide r Encounter Details Date Type Department Care Team (Latest Contact Info) Description 04/09/2022 Abstract C CONVERSIONS Dental, Provider, DDS Social [...] on filedocumented in this encounter Care Teams Machine Assembler For Puller Over Relationship Specialty Start Date End Date Mariely Trejo MD [address] [place] [phone] PCP - General Family Medicine 08/05/19 documented as of this encounter
--- OUTSIDE RECORDS SUMMARY | 2024-12-02 17:56 | XMS_ITS | Clinical Summary ---
Author Organization [facility] Address [address] [place] [address] Care Team Providers Care Refractive Surgeon Name Role Phone Unavailable Primary Care Provider Unavailabl e Source Comments PLEASE NOTE, if this patient is a minor, it may be UNLAWFUL to discuss sensitive information that is contained in these records (such as FAMILY PLANNING, MENTAL HEALTH or SUBSTANCE ABUSE) with the minor patient's parent or other person without the patient's specific authorization.[facility] Social History Tobacco Use Types Packs/Day Years Used Date Smoking Tobacco: Never Assessed Social Connections Answer Date Recorded Connectedness 0 06/03/2024 Financial Resource Strain Answer Date R ecorded Financial Resource Strain 0 2020 Stress Answer Date Recorded Stress 0 06/03/2021 Physical Activity Answer Date Recorded Physical Activity 0 06/03/2021 Food Insecurity Answer Date Recorded Food 0 06/17/2024 Transportation Needs Answer Date Record ed Transportation 0 06/03/2021 Housing Stability Answer Date Recorded Housing 0 06/03/2021 Safety and Environment Answer Date Cornel rded Safety 0 06/03/2021 Utilities Answer Date Recorded Utilities 0 06/03/2021 Employment Answer Date Recorded Stress 0 06/03/2024 Comments Unknown Sex and Gender Information Value Date Recorded Sex Assigned at Not on file Legal Sex Female 10:34 AM PDT Gender Identity Not on file Sexual Orientation Not on file Plan of Treatment Not on file Insurance [facility] [employer]
== END 2024-12-02 14:05 | disposition home or self-care (01) ==
LOC: HO.HHCX 14:04
PROVIDERS: Visit Provider Family Medicine
DX: M54.50 Low back pain, unspecified (principal)
CPT/HCPCS: 72100

== ENCOUNTER → 2024-12-02 14:04 | Outpatient (BNV) | payer MEDICAID, SELFPAY | PROVIDERS: Visit Provider Radiology Diagnostic Radiology | DX: M54.50 Low back pain, unspecified (principal) | CPT/HCPCS: 72100 ==

== ENCOUNTER 2025-03-29 15:03 | Emergency (ER) | payer OTHER, SELFPAY ==
--- NOTE | ~2025-03-29 | CT_ITS ---
CLINICAL HISTORY: Left lower quadrant pain CT abdomen and pelvis without contrast Comparison: None provided Findings: Lung bases clear. No acute bony abnormality. Liver and spleen within normal limits. Pancreas and adrenal glands unremarkable. Cholecystectomy. Small nonobstructing right renal stone. No left renal or bilateral ureteral stone. No significant focal renal abnormality or hydronephrosis. No evidence for aortic aneurysm. No free fluid or adenopathy in the pelvis. No diverticulitis. Appendix unremarkable. Uterus normal size. No adnexal abnormality. Impression: No acute processes This document has been electronically signed by: Mukesh Qureshi MD on 03/29/2025 21:36:26
[2025-03-29 15:34] VITALS: BP 113/79; PULSE 99; RESP 18; TEMP 36.8; O2SAT 100; BMI 27.7
[2025-03-29 16:16] LABS: MANUAL DIFF FLAG NO
--- OUTSIDE RECORDS SUMMARY | 2025-03-29 16:18 | XMS_ITS | Clinical Summary ---
Author Organization [facility] Address [address] [place] [address] Care Team Providers Care Vice President Of Advertising Name Role Phone Unavailable Primary Care Provider [...] of Treatment Not on file Insurance [facility] [employer]
--- OUTSIDE RECORDS SUMMARY | 2025-03-29 16:18 | XMS_ITS | Encounter Summary ---
Author Organization [employer] [facility] Address [address] [place] [address] Care Team Providers Care Dental Service Chief Name Role Phone Mariely Trejo MD Primary Care Provide r Encounter Details Date Type Department Care Team ([facility] st Contact Info) Description 06/16/2023 Orders Only [facility] [address] [place], [place] [phone] Provider, Librado, Social History Tobacco Use Types [...] on filedocumented in this encounter Care Teams Dental Service Chief Relationship Specialty Start Date End Date Mariely Trejo MD [address] [place] [address] PCP - General Family Medicine 08/05/19 documented as of this encounter
[2025-03-29 16:19] LABS: Appearance Urine Clear; Glucose Urine UA Negative (Negative); PH 6.5 (5.0-9.0); Specific Gravity - Urine <= 1.005 (1.005-1.025)
[2025-03-29 16:25] LABS: Hematocrit 34.8 % (37.0-47.0); Hemoglobin 10.9 g/dl (12.0-16.0); Imm Gran Abs Auto 0.03 X10*3/uL (0.00-0.03); Imm Gran Pct Auto 0.3 % (0.0-0.4); Lymphocytes Absolute Auto 2.2 X10*3/uL (1.2-4.9); Mean Corpuscular HGB Conc 31.3 g/dl (31.0-35.0); Mean Corpuscular Hemoglobin 17.7 pg (27.0-33.0); Mean Corpuscular Volume 56.5 fL (80.0-98.0); NRBC Abs Auto 0.020 X10*3/uL (0.0-0.012); NRBC Pct Auto 0.2 /100WBC (0.0-0.2); Platelet Count 300 X10*3/uL (160-400); Red Blood Count 6.16 X10*6/uL (4.20-5.50); White Blood Count 10.6 X10*3/uL (4.8-10.8)
[2025-03-29 16:34] LABS: Alanine Aminotransferase 14 U/L (0-31); Albumin Level 4.5 g/dL (3.5-5.0); Alkaline Phosphatase 77 U/L (39-117); Anion Gap 10 (12-20); Aspartate Amino Transferase 17 U/L (5-31); Blood Urea Nitrogen 9 mg/dL (9-16); Calcium 8.8 mg/dL (8.4-10.2); Carbon Dioxide 27 mmol/L (22-29); Chloride 103 mmol/L (96-108); Creatinine Clr Calc Pharmacy 95.7; Estimated Glomerular Filt Rate > 60; Potassium 4.3 mmol/L (3.3-5.1); Sodium 136 mmol/L (135-145); Total Protein 7.1 g/dL (6.5-8.0)
--- NOTE | 2025-03-29 17:50 | ED_ITS ---
HPI - General Adult General Chief complaint: Abdominal Pain Stated complaint: pain in abd r side Time Seen by Provider: 03/29/25 19:47 Source: patient Mode of arrival: ambulatory Limitations: no limitations History of Present Illness ED Provider: HPI narrative: Patient no significant past medical history complaining of pain in left lower abdomen for last 1 week got worse in last 3 days she with nausea no diarrhea no fever or chills has small amount of blood when she wipes Related Data Home Medications ?Medication ?Instructions ?Recorded ?Confirmed folic acid 800 mcg tablet 0.8 mg PO DAILY 06/29/2006/13 sertraline 100 mg tablet 100 mg PO DAILY 06/29/2006/13 hydroxyzine HCl 25 mg tablet 25 mg PO BID PRN 02/21/22 07/31/22 Previous Rx's ?Medication ?Instructions ?Recorded dicyclomine 20 mg tablet 20 mg PO QID PRN abdominal pain 03/29/25 #20 tabs Allergies Allergy/AdvReac Type Severity Reaction Status Date / Time latex Allergy Eye Verified 03/29/25 15:36 Swelling Review of Systems 2 Review of Systems: Yes all other systems are reviewed and are negative [facility] Past Medical History Medical History Renal calculi Thrombosed external hemorrhoid Endometriosis Thalassemia minor Anemia Heartburn Surgical History History of No significant past surgical history Family History Family History Father Hypertension Heart attack Mother Cancer H/O thalassemia minor Social History Social History Household Members: Spouse and Children Housing: Apartment Alcohol intake: never Patient Tobacco Use Status: Never used Tobacco Current occupation: [employer] Sexual orientation: Straight/Heterosexual Gender identity: Female Physical Exam ED Vital Signs: Vital Signs - 24 hr 03/29/25 15:34 03/29/25 19:50 03/29/25 22:12 Temperature 98.2 F 98.4 F 98.5 F Pulse Rate 99 84 77 Respiratory Rate 18 16 18 Blood Pressure 113/79 123/87 127/75 Pulse Oximetry 100 100 99 Oxygen Delivery Method Room Air Room Air Room Air 03/29/25 22:13 Temperature 98.5 F Pulse Rate 77 Respiratory Rate 18 Blood Pressure 127/75 Pulse Oximetry 99 Oxygen Delivery Method Room Air BMI result Body Mass Index 27.7 Appearance: Alert. Oriented X3. No acute distress. Eyes: PERRLA, No Nystagmus ENT: Pharynx normal. Oral Mucosa moist Neck: Normal inspection. Neck supple. CVS: Normal heart rate and rhythm. Pulses normal. Respiratory: No respiratory distress. Equal air entry bilateral, no wheezing/rales/rhonchi Abdomen: Soft and deep tenderness left lower quadrant Bowel sounds are present, no mass palpable, no CVA tenderness Skin: Skin warm and dry. Normal skin color. Normal skin turgor. Extremities: No lower extremity edema. No calf tenderness Neuro: Oriented X 3. No motor deficit. No sensory deficit.No cerebellar signs , cranial nerves II-XII intact Course Course Course Narrative: RME: 39-year-old female presents to ED for right-sided abdominal pain. Patient denies any nausea vomiting. Patient denies any genitourinary. . Patient states pain in lower quadrant. Labs ordered Medications Administered Discontinued Medications Generic Name Dose Route Start Last Admin Trade Name Freq PRN Reason Stop Dose Admin Morphine Sulfate 15 mg 03/29/25 20:52 03/29/25 21:09 Morphine Sulfate Immed Release 15 Mg Tablet PO 03/29/25 20:53 15 mg ONCE ONE Administration Medical Decision Making Medical Decision Making [facility] Narrative: Patient nonspecific left lower quadrant pain CT scan was done negative for acute process likely nonspecific bowel pain will discharge patient home advised to drink plenty of fluids Differential Diagnosis Differential Diagnoses: The differential diagnosis associated with the presentation includes UTI/kidney stone/diverticulitis Lab Data [facility] Lab Attestation statement: I reviewed the patient's lab results. 03/29/25 16:13 03/29/25 16:13 Labs: Lab Results 03/29/25 Range/Units 16:13 WBC 10.6 (4.8-10.8) X10*3/uL RBC 6.16 H (4.20-5.50) X10*6/uL Hgb 10.9 L (12.0-16.0) g/dl Hct 34.8 L (37.0-47.0) % MCV 56.5 L (80.0-98.0) fL MCH 17.7 L (27.0-33.0) pg MCHC 31.3 (31.0-35.0) g/dl RDW 18.6 H (11.0-16.0) % Plt Count 300 (160-400) X10*3/uL MPV Not Reportable Immature Gran % (Auto) 0.3 (0.0-0.4) % Neut % (Auto) 69.3 (45-73) % Lymph % (Auto) 20.6 (20-40) % [place] % (Auto) 4.6 (2-11) % Eos % (Auto) 4.6 H (0-4) % Baso % (Auto) 0.6 (0-2) % Lymph # (Auto) 2.2 (1.2-4.9) X10*3/uL [place] # (Auto) 0.5 (0.1-1.2) X10*3/uL Eos # (Auto) 0.5 H (0.0-0.4) X10*3/uL Baso # (Auto) 0.1 (0.0-0.2) X10*3/uL Abs Immat Gran (auto) 0.03 (0.00-0.03) X10*3/uL Absolute Neuts (auto) 7.3 (2.0-8.3) x10*3/uL Absolute Nucleated RBC 0.020 H (0.0-0.012) X10*3/uL Nucleated RBC % (auto) 0.2 (0.0-0.2) /100WBC Sodium 136 (135-145) mmol/L Potassium 4.3 (3.3-5.1) mmol/L Chloride 103 (96-108) mmol/L Carbon Dioxide 27 (22-29) mmol/L Anion Gap 10 L (12-20) BUN 9 (9-16) mg/dL Creatinine 0.71 (0.5-1.4) mg/dL Estim Creat Clear Calc 95.7 Estimated GFR > 60 Random Glucose 75 (60-115) mg/dL Calcium 8.8 (8.4-10.2) mg/dL Total Bilirubin 1.0 (0.0-1.0) mg/dL AST 17 (5-31) U/L ALT 14 (0-31) U/L Alkaline Phosphatase 77 (39-117) U/L Total Protein 7.1 (6.5-8.0) g/dL Albumin 4.5 (3.5-5.0) g/dL Lipase 39 (8-78) U/L Beta HCG, Quant < 2 mIU/mL Urine Color Yellow Urine Appearance Clear Urine pH 6.5 (5.0-9.0) Ur Specific [place] <= 1.005 (1.005-1.025) Urine Protein Negative (Neg-Trace) mg/dL Urine Glucose (UA) Negative (Negative) mg/dL Urine Ketones Negative (Negative) mg/dL Urine Blood Negative (Negative) Urine Nitrite Negative (Negative) Ur Leukocyte Esterase Negative (Negative) Independent Interpretation I performed an independent interpretation of an: CT Scan Interpretation: No acute Radiology Impression Discussion of test interpretation with radiology: I have reviewed the radiologist's reading. Discharge Plan Discharge Clinical Impression: Abdominal pain Patient Disposition: Home, Self-Care Instructions: Abdominal Pain (ED) Additional Instructions: Cause of your pain is not clear your CT scan and blood and urine are normal Take pain medication as prescribed Follow with your PCP Prescriptions: New dicyclomine 20 mg tablet 20 mg PO QID PRN (Reason: abdominal pain) Qty: 20 0RF No Action sertraline 100 mg tablet 100 mg PO DAILY folic acid 800 mcg tablet 0.8 mg PO DAILY hydroxyzine HCl 25 mg tablet 25 mg PO BID PRN Interventions: ED Discharge Assessment Last Done: 03/29/25 22:13 Discharge Date/Time: 03/29/25 22:13 Print Language: Wallisian
[2025-03-29 19:50] VITALS: BP 123/87; PULSE 84; RESP 16; TEMP 36.9; O2SAT 100
[2025-03-29 20:25] LABS: Lipase 39 U/L (8-78)
[2025-03-29] MEDS: Morphine Sulfate Immed Release 15 MG TABLET PO (21:09)
[2025-03-29 22:12] VITALS: BP 127/75; PULSE 77; RESP 18; TEMP 36.9; O2SAT 99
[2025-03-29 22:13] VITALS: BP 127/75; PULSE 77; RESP 18; TEMP 36.9; O2SAT 99
== END 2025-03-29 22:13 | disposition home or self-care (01) ==
PROVIDERS: Physician Assistant; Emergency Provider Internal Medicine; PCP Internal Medicine
DX: R10.32 Left lower quadrant pain (principal)
CPT/HCPCS: 36415; 74176; 80053; 81003; 83690; 84702; 85025; 99284

== ENCOUNTER → 2025-03-29 20:09 | Outpatient (BNV) | payer OTHER, SELFPAY | PROVIDERS: Emergency Provider Internal Medicine; PCP Internal Medicine; Visit Provider Radiology Diagnostic Radiology | DX: R10.32 Left lower quadrant pain (principal) | CPT/HCPCS: 74176 ==

== ENCOUNTER 2025-04-22 14:40 | Outpatient (REF) | payer OTHER, SELFPAY ==
--- OUTSIDE RECORDS SUMMARY | 2025-04-23 14:42 | XMS_ITS | Encounter Summary ---
Author Organization [id number] Address [address] [place] [address] Care Team Providers Care Computer Security Coordinator Name Role Phone Mariely Trejo MD Primary Care Provide r Encounter Details Date Type Department Care Team ([facility] st Contact Info) Description 06/16/2023 Orders Only [facility] [address], [place] [id number] Provider, Librado, Social History Tobacco Use Types [...] on filedocumented in this encounter Care Teams Computer Security Coordinator Relationship Specialty Start Date End Date Mariely Trejo MD [address] [place] [address] PCP - General Family Medicine 08/05/19 documented as of this encounter
--- OUTSIDE RECORDS SUMMARY | 2025-04-23 14:43 | XMS_ITS | Clinical Summary ---
Author Organization [facility] Address [address] [place] [address] Care Team Providers Care Interior Decorator Name Role Phone Unavailable Primary Care Provider [...] of Treatment Not on file Insurance [facility]
[2025-04-23 15:52] LABS: Bacterial Vaginosis PCR POSITIVE (Negative); Candida Group PCR NOT DETECTED (Not Detect); Candida glab krusei PCR NOT DETECTED (Not Detect); Trichomonas vaginalis PCR NOT DETECTED (Not Detect)
== END 2025-04-22 14:41 | disposition home or self-care (01) ==
LOC: HO.HHCLNP 14:40
PROVIDERS: Visit Provider Nurse Practitioner Family
DX: R10.32 Left lower quadrant pain (principal); Z11.3 Encounter for screening for infections with a predominantly sexual mode of transmission; Z11.2 Encounter for screening for other bacterial diseases
CPT/HCPCS: 81515